=== PATIENT | female | born 1950 | race American Indian/Alaskan Native ===

== ENCOUNTER 2017-06-01 18:30 | Emergency (ER) | payer MEDICARE ==
--- NOTE | 2017-06-01 18:57 | EDM.PDOC ---
ED HPI GENERAL MEDICAL PROBLEM - General Chief Complaint: Neuro Symptoms/Deficits Stated Complaint: DEHYDRATED/POSSIBLE STROKE Time Seen by Provider: 06/01/17 18:55 Source of Information: Reports: Patient, EMS, Family History Limitations: Reports: No Limitations - History of Present Illness INITIAL COMMENTS - FREE TEXT/NARRATIVE: HISTORY AND PHYSICAL: [] 67-year-old female who presents with weakness History of Present Illness: []Patient was seen at by her physician and Niraj at [place] yesterday a fistula was drained from her left upper arm. Fistulas placed because she is on dialysis. Weakness to this arm has been present for several years. Patient was noted to have a drop in her blood sugar on the way home from [place] yesterday and they stopped at the hospital in [place] for evaluation and treatment. When patient was home she was walking in the house and was confused was out on the balcony then fell backwards striking the back of her head on the TV stand. Patient was acting "funny" and unable able to carry on a conversation is normal. Slowly she is improving but having difficulty occasionally. Review of Systems: As per history of present illness and below otherwise all systems reviewed and negative. Past medical history: As per history of present illness and as reviewed below otherwise noncontributory. Surgical history: As per history of present illness and as reviewed below otherwise noncontributory. Social history: No reported history of drug or alcohol abuse. Family history: As per history of present illness and as reviewed below otherwise noncontributory. Physical exam: Alert female answering questions when given a chance HEENT: Atraumatic, normocehpalic, pupils reactive, negative for conjunctival pallor or scleral icterus, mucous membranes moist, throat clear, neck supple, nontender, trachea midline. Lungs: Clear to auscultation, breath sounds equal bilaterally, chest non tender. Heart: S1S2, regular, negative for clicks, rubs, or JVD. Abdomen: Soft, nondistended, nontender. Negative for masses or hepatossplenmegaly. Negative for costovertebral tenderness. Pelvis: Stable nontender. Genitourinary: Deferred. Rectal: Deferred Extremities: Atraumatic, negative for cords or calf pain. Neurovascular unremarkable. Neuro: Awake, alert, oriented. Cranial nerves II through XII unremarkable. Cerebellum unremarkable. Motor and sensory unremarkable throughout. Exam nonfocal. Diagnostics: [Head CT, CBC CMP] Therapeutics: [] Impression: [Mild concussion] Plan: [Discharged home Follow up with PCP Continue with current meds as she been taking them] Definitive disposition and diagnosis as appropriate pending reevaluation and review of above. Onset: Sudden Duration: Day(s): (1) Location: Reports: Head, Generalized Severity: Moderate Improves with: Reports: None Worsens with: Reports: None - Related Data Allergies Allergy/AdvReac Type Severity Reaction Status Date / Time iodine Allergy Airway Verified 06/01/17 18:47 Tightness Penicillins Allergy Rash Verified 06/01/17 18:47 shellfish derived Allergy Airway Verified 06/01/17 18:47 Tightness Home Meds: Home Meds Metoprolol Succinate 25 mg PO DAILY #30 tab.er.24h 06/15/16 [Rx] Past Medical History Cardiovascular History: Reports: [place] Genitourinary History: Reports: Chronic Renal Insuffiency, Dialysis, Other (See Below) Other Genitourinary History: On HD - Past Surgical History Cardiovascular Surgical History: Reports: Coronary Artery Bypass Musculoskeletal Surgical History: Reports: Other (See Below) Social & Family History - Tobacco Use Smoking Status *Q: Former Smoker Used Tobacco, but Quit: Yes Month Tobacco Last Used: 2002 Second Hand Smoke Exposure: No - Alcohol Use Days Per Week of Alcohol Use: 0 - Recreational Drug Use Recreational Drug Use: No ED ROS GENERAL - Review of Systems Review Of Systems: ROS reveals no pertinent complaints other than HPI. ED EXAM, NEURO - Physical Exam Exam: See Below (See dictation) Course - Vital Signs Last Recorded V/S: Last Vital Signs Temp 36.7 C 06/01/17 18:49 Pulse 82 06/01/17 18:49 Resp 20 06/01/17 18:49 BP 174/75 H 06/01/17 18:49 Pulse Ox 95 06/01/17 18:49 - Orders/Labs/Meds Orders: Active Orders 24 hr Category Date Time Status Head wo Cont [CT] Stat Exams 06/01/17 18:55 Taken Labs: Laboratory Tests 06/01/17 06/01/17 Range/Units 19:29 19:29 WBC 9.98 (4.0-11.0) K/uL RBC 3.28 L (4.30-5.90) M/uL Hgb 10.5 L (12.0-16.0) g/dL Hct 32.4 L (36.0-46.0) % MCV 98.8 H (80.0-98.0) fL MCH 32.0 (27.0-32.0) pg MCHC 32.4 (31.0-37.0) g/dL RDW Std Deviation 49.6 (28.0-62.0) fl RDW Coeff of Edyta 14 (11.0-15.0) % Plt Count 260 (150-400) K/uL MPV 10.80 (7.40-12.00) fL Neut % (Auto) 77.8 (48.0-80.0) % Lymph % (Auto) 10.1 L (16.0-40.0) % [place] % (Auto) 8.9 (0.0-15.0) % Eos % (Auto) 3.0 (0.0-7.0) % Baso % (Auto) 0.2 (0.0-1.5) % Neut # (Auto) 7.8 H (1.4-5.7) K/uL Lymph # (Auto) 1.0 (0.6-2.4) K/uL [place] # (Auto) 0.9 H (0.0-0.8) K/uL Eos # (Auto) 0.3 (0.0-0.7) K/uL Baso # (Auto) 0.0 (0.0-0.1) K/uL Nucleated RBC % 0.0 /100WBC Nucleated RBCs # 0 K/uL Sodium 139 (136-146) mmol/L Potassium 4.0 (3.5-5.1) mmol/L Chloride 99 (98-110) mmol/L Carbon Dioxide 28 (21-31) mmol/L BUN 23 (6.0-23.0) mg/dL Creatinine 5.5 H (0.6-1.5) mg/dL Est Cr Clr Drug Dosing TNP Estimated GFR (MDRD) 7.7 ml/min Glucose 163 H (60-110) mg/dL Calcium 8.2 L (8.8-10.8) mg/dL Total Bilirubin 0.6 (0.1-1.5) mg/dL AST 11 (5-40) IU/L ALT 8 (8-54) IU/L Alkaline Phosphatase 142 (40-150) Total Protein 6.6 (6.0-8.0) g/dL Albumin 3.8 (3.4-4.8) g/dL Globulin 2.8 (2.0-3.5) g/dL Albumin/Globulin Ratio 1.4 (1.3-2.8) Departure - Departure Time of Disposition: 20:31 Disposition: Home, Self-Care 01 Condition: Good Clinical Impression: Concussion Qualifiers: Encounter type: initial encounter Loss of consciousness presence/duration: without LOC Qualified Code(s): S06.0X0A - Concussion without loss of consciousness, initial encounter Mild closed head injury Qualifiers: Encounter type: initial encounter Qualified Code(s): S09.90XA - Unspecified injury of head, initial encounter - Discharge Information Referrals: PCP,None [Primary Care Provider] - Forms: ED Department Discharge Additional Instructions: The following information is given to patients seen in the emergency department who are being discharged to home. This information is to outline your options for follow-up care. We provide all patients seen in our emergency department with a follow-up referral. The need for follow-up, as well as the timing and circumstances, are variable depending upon the specifics of your emergency department visit. If you don't have a primary care physician on staff, we will provide you with a referral. We always advise you to contact your personal physician following an emergency department visit to inform them of the circumstance of the visit and for follow-up with them and/or the need for any referrals to a consulting specialist. The emergency department will also refer you to a specialist when appropriate. This referral assures that you have the opportunity for followup care with a specialist. All of these measure are taken in an effort to provide you with optimal care, which includes your followup. Under all circumstances we always encourage you to contact your private physician who remains a resource for coordinating your care. When calling for followup care, please make the office aware that this follow-up is from your recent emergency room visit. If for any reason you are refused follow-up, please contact the [facility] emergency department at and asked to speak to the emergency department charge nurse. You've been found to have a mild head injury/concussion after fall yesterday Follow-up with your primary care provider in 2 days Tenuous current medications ias you have been taking them - My Orders Last 24 Hours: My Active Orders 06/01/17 18:55 Head wo Cont [CT] Stat - Assessment/Plan Last 24 Hours: My Active Orders 06/01/17 18:55 Head wo Cont [CT] Stat
[2017-06-01 20:02] LABS: CHLORIDE,CL 99 mmol/L (98-110); SODIUM,NA 139 mmol/L (136-146)
[2017-06-01 20:55] VITALS: BP 156/73
--- NOTE | 2017-06-06 13:47 | CT ---
EXAM DATE: 06/01/17 PATIENT'S AGE: 67 Patient: YAZMIN TRACEY Facility: [facility] Site . Site : 1950 Study: CT-Head [id number]/1/2018 7:49:19 PM Ordering Physician: Doctor Escalante Final Report: INDICATION: AMS, THAPA FINDINGS: No intracranial hemorrhage, mass effect, or evidence for acute infarction. Patchy low attenuation changes in the white matter of both cerebral hemispheres consistent with chronic small vessel ischemic changes. Age- appropriate cerebral and cerebellar volume loss. Intracranial vascular calcifications. IMPRESSION: 1. No acute findings. 2. Chronic age-related changes. Please note that all CT scans performed at this facility use dose modulation, iterative reconstruction, and/or weight based dosing when appropriate to reduce radiation dose to as low as reasonably achievable. Dictated by: Christopher Dudley MD @ 06/01/2017 19:54:02 Signed by: Christopher Dudley MD @06/01/2017 7:54:02 PM (Electronic Signature) Report Signed by Proxy. [facility]
== END 2017-06-01 20:55 | disposition home or self-care (01) ==
LOC: MW.ED 18:30
DX: S06.0X0A Concussion without loss of consciousness, initial encounter (principal); N18.9 Chronic kidney disease, unspecified; Z99.2 Dependence on renal dialysis; Z87.891 Personal history of nicotine dependence; W01.198A Fall on same level from slipping, tripping and stumbling with subsequent striking against other object, initial encounter; Y92.009 Unspecified place in unspecified non-institutional (private) residence as the place of occurrence of the external cause
CPT/HCPCS: 36415; 70450; 70450-26; 80053; 85025; 99284; 99284-25

== ENCOUNTER 2017-06-17 13:37 | Emergency (ER) | payer MEDICARE ==
[2017-06-17] MEDS ORDERED: cefTRIAXone 1,000 MG in Lidocaine 1% 4 ML IM ONE (15:03)
--- NOTE | 2017-06-17 16:18 | EDM.PDOC ---
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 Review of Systems: As per history of present illness and below otherwise all systems reviewed and negative. Past medical history: As per history of present illness and as reviewed below otherwise noncontributory. Surgical history: As per history of present illness and as reviewed below otherwise noncontributory. Social history: No reported history of drug or alcohol abuse. Family history: As per history of present illness and as reviewed below otherwise noncontributory. Physical exam: Patient was sent to the emergency room today due to increased pustular material. She was accompanied initially by her sister. Patient has wearing sunglasses during her time in the emergency department, is answering questions appropriately in full sentences without any shortness of breath. HEENT: Atraumatic, normocehpalic, pupils reactive, negative for conjunctival pallor or scleral icterus, mucous membranes moist, throat clear, neck supple, nontender, trachea midline. Lungs: Clear to auscultation, breath sounds equal bilaterally, chest non tender. Heart: S1S2, regular, negative for clicks, rubs, or JVD. Abdomen: Soft, nondistended, nontender. Negative for masses or hepatossplenmegaly. Negative for costovertebral tenderness. Pelvis: Stable nontender. Genitourinary: Deferred. Rectal: Deferred Extremities: Atraumatic, negative for cords or calf pain. Fistula to the left arm is erythematous raised there is fluctuant material in her elbow. Purulent material is present. A light amount of pressure to this area and purulent material mixed with blood is present about 1 tablespoon is easily expressed. Neurovascular unremarkable. Neuro: Awake, alert, oriented. Cranial nerves II through XII unremarkable. Cerebellum unremarkable. Motor and sensory unremarkable throughout. Exam nonfocal. Discussion was held with Dr. Nowak ER doctor, and Dr. Jerome radiation control specialist at [facility] who is on-call for her surgeon Dr. Pimentel. His recommendation has been to give her a dose of vancomycin IV, Rocephin IM and reevaluate this wound tomorrow. Patient is due to have dialysis again on 06/19/17. I had a discussion with the patient regarding this infection to her arm/the treatment that may be required/and follow-up with her surgeon. Have reviewed that the discussion several times with this patient. Dr. Nowak has had discussion with this patient regarding the infection to her arm. She is agreeable for transfer to her surgeon in [place] for definitive treatment. Dr. Nowak kindly spoke with the hospitalist at [facility] in [place] who accepted care of this patient along with Dr. Jerome. All IMTAL[employer] forms, transfer papers were completed Patient has been encouraged to all her sister to let her know that she will be transferring. Diagnostics: [CBC CMP lactic acid] Therapeutics: [IV vancomycin Rocephin IM] Impression: [Skin Infection at the fistula site] Abscess to left inner arm fistula Plan: [Transfer to [facility]] Definitive disposition and diagnosis as appropriate pending reevaluation and review of above. Onset: Gradual Duration: Day(s): Location: Reports: Upper Extremity, Left Severity: Moderate Improves with: Reports: None Worsens with: Reports: None - Related Data Allergies Allergy/AdvReac Type Severity Reaction Status Date / Time iodine Allergy Airway Verified 06/01/17 18:47 Tightness Penicillins Allergy Rash Verified 06/01/17 18:47 shellfish derived Allergy Airway Verified 06/01/17 18:47 Tightness Home Meds: Home Meds B Complex & C No.20/Folic Acid [Olvin Caps Softgel] 1 mg PO DAILY 06/17/17 [ History] Gabapentin [Neurontin] 100 mg PO QID 06/17/17 [History] Insulin Detemir [Levemir] 15 unit SQ BID 06/17/17 [History] Levothyroxine 175 mcg PO DAILY 06/17/17 [History] Sevelamer Carbonate [Renvela] 800 mg PO TID 06/17/17 [History] Past Medical History Cardiovascular History: Reports: Hypertension, [place] Genitourinary History: Reports: Chronic Renal Insuffiency, Dialysis, Other (See Below) Other Genitourinary History: On HD Endocrine/Metabolic History: Reports: Other (See Below) Other Endocrine/Metabolic History: hyperlipedmia - Past Surgical History Cardiovascular Surgical History: Reports: Coronary Artery Bypass GI Surgical History: Reports: Appendectomy, Cholecystectomy Social & Family History - Family History Family Medical History: Noncontributory - Tobacco Use Smoking Status *Q: Never Smoker Used Tobacco, but Quit: Yes Month Tobacco Last Used: 2002 Second Hand Smoke Exposure: No - Alcohol Use Days Per Week of Alcohol Use: 0 - Recreational Drug Use Recreational Drug Use: No ED ROS GENERAL - Review of Systems Review Of Systems: ROS reveals no pertinent complaints other than HPI. ED EXAM, SKIN/RASH Exam: See Below (See dictation) Course - Vital Signs Last Recorded V/S: Last Vital Signs Temp 36.8 C 06/17/17 16:29 Pulse 64 06/17/17 16:29 Resp 16 06/17/17 16:29 BP 161/57 H 06/17/17 16:29 Pulse Ox 95 06/17/17 16:29 - Orders/Labs/Meds Orders: Active Orders 24 hr Category Date Time Status CULTURE BLOOD [BC] Stat Lab 06/17/17 15:28 Received CULTURE BLOOD [BC] Stat Lab 06/17/17 15:30 Received CULTURE WOUND [RM] Stat Lab 06/17/17 11:20 Received Blood Culture x2 Reflex Set [OM.PC] Stat Oth 06/17/17 15:03 Ordered Labs: Laboratory Tests 06/17/17 06/17/17 06/17/17 Range/Units 14:42 14:42 14:42 WBC 10.54 (4.0-11.0) K/uL RBC 3.52 L (4.30-5.90) M/uL Hgb 11.4 L (12.0-16.0) g/dL Hct 34.0 L (36.0-46.0) % MCV 96.6 (80.0-98.0) fL MCH 32.4 H (27.0-32.0) pg MCHC 33.5 (31.0-37.0) g/dL RDW Std Deviation 47.3 (28.0-62.0) fl RDW Coeff of Edyta 14 (11.0-15.0) % Plt Count 257 (150-400) K/uL MPV 11.00 (7.40-12.00) fL Neut % (Auto) 76.6 (48.0-80.0) % Lymph % (Auto) 14.0 L (16.0-40.0) % [place] % (Auto) 6.2 (0.0-15.0) % Eos % (Auto) 2.8 (0.0-7.0) % Baso % (Auto) 0.4 (0.0-1.5) % Neut # (Auto) 8.1 H (1.4-5.7) K/uL Lymph # (Auto) 1.5 (0.6-2.4) K/uL [place] # (Auto) 0.7 (0.0-0.8) K/uL Eos # (Auto) 0.3 (0.0-0.7) K/uL Baso # (Auto) 0.0 (0.0-0.1) K/uL Nucleated RBC % 0.0 /100WBC Nucleated RBCs # 0 K/uL Lactate 1.9 (0.20-2.00) mmol/L Sodium 133 L (136-146) mmol/L Potassium 3.9 (3.5-5.1) mmol/L Chloride 94 L (98-110) mmol/L Carbon Dioxide 27 (21-31) mmol/L BUN 20 (6.0-23.0) mg/dL Creatinine 4.5 H (0.6-1.5) mg/dL Est Cr Clr Drug Dosing 9.47 mL/min Estimated GFR (MDRD) 9.7 ml/min Glucose 218 H (60-110) mg/dL Calcium 8.6 L (8.8-10.8) mg/dL Total Bilirubin 0.7 (0.1-1.5) mg/dL AST 13 (5-40) IU/L ALT 10 (8-54) IU/L Alkaline Phosphatase 153 H (40-150) Total Protein 6.6 (6.0-8.0) g/dL Albumin 3.6 (3.4-4.8) g/dL Globulin 3.0 (2.0-3.5) g/dL Albumin/Globulin Ratio 1.2 L (1.3-2.8) Meds: Medications Discontinued Medications Generic Name Dose Route Start Last Admin Trade Name Nidia PRN Reason Stop Dose Admin Ceftriaxone Sodium 1,000 mg/ 4 mls @ 4 mls/sec 06/17/17 15:03 06/17/17 15:34 Lidocaine HCl IM 06/17/17 15:04 4 mls/sec ONETIME ONE Administration Vancomycin HCl 1 gm/ Sodium 250 mls @ 250 mls/hr 06/17/17 15:58 06/17/17 16: 18 Chloride IV 06/17/17 16:57 250 mls/hr ONETIME ONE Administration Departure - Departure Time of Disposition: 17:13 Disposition: DC/Tfer to Acute Hospital 02 Condition: Good Clinical Impression: Abscess - Discharge Information Instructions: Skin Abscess Referrals: PCP,None [Primary Care Provider] - Forms: ED Department Discharge - My Orders Last 24 Hours: My Active Orders 06/17/17 11:20 CULTURE WOUND [RM] Stat 06/17/17 15:03 Blood Culture x2 Reflex Set [OM.PC] Stat 06/17/17 15:28 CULTURE BLOOD [BC] Stat 06/17/17 15:30 CULTURE BLOOD [BC] Stat - Assessment/Plan Last 24 Hours: My Active Orders 06/17/17 11:20 CULTURE WOUND [RM] Stat 06/17/17 15:03 Blood Culture x2 Reflex Set [OM.PC] Stat 06/17/17 15:28 CULTURE BLOOD [BC] Stat 06/17/17 15:30 CULTURE BLOOD [BC] Stat
[2017-06-17 17:55] VITALS: BP 160/65
== END 2017-06-17 18:03 ==
LOC: MW.ED 13:37
DX: T81.4XXA Infection following a procedure, initial encounter (principal); L02.414 Cutaneous abscess of left upper limb; I12.9 Hypertensive chronic kidney disease with stage 1 through stage 4 chronic kidney disease, or unspecified chronic kidney disease; E11.22 Type 2 diabetes mellitus with diabetic chronic kidney disease; N18.9 Chronic kidney disease, unspecified; Z99.2 Dependence on renal dialysis; E78.5 Hyperlipidemia, unspecified; Z79.4 Long term (current) use of insulin; Z79.899 Other long term (current) drug therapy; Z88.0 Allergy status to penicillin; Z88.8 Allergy status to other drugs, medicaments and biological substances; Z91.013 Allergy to seafood; Z87.891 Personal history of nicotine dependence; Z98.890 Other specified postprocedural states
CPT/HCPCS: 36415; 80053; 83605; 85025; 87040; 87070; 96365; 96372; 99284; J0696; J3370; J7050; 87077; 87186; 99285

== ENCOUNTER 2017-09-27 06:59 | Emergency (ER) | payer MEDICARE, MEDICAID ==
[2017-09-27] MEDS ORDERED: Sodium Chloride 0.9% 2.5 ML Syringe FLUSH PRN (07:16)
--- NOTE | 2017-09-27 07:22 | EDM.PDOC ---
ED HPI GENERAL MEDICAL PROBLEM - General Chief Complaint: Trauma Stated Complaint: AMBULANCE Time Seen by Provider: 09/27/17 07:09 - History of Present Illness INITIAL COMMENTS - FREE TEXT/NARRATIVE: HISTORY AND PHYSICAL: History of present illness: The patient is a 67-year-old female who has end-stage renal disease and is on hemodialysis and also has hypertension , history of CABG, diabetes hypothyroidism who presents via EMS after a simple follow one-step because she missed the step and fell onto her left arm. Patient was with her nephew who was walking with her and witnessed the fall and says that she was coming down the last step and missed it and fell onto the left side. The patient did not pass out or black out and has no head neck or back pain but complains only of left humerus pain. The patient says she was on her way to dialysis this morning when this occurred. She usually uses a walker and was walking the steps without assistance. Patient's fistula for dialysis is also on that left side. Patient denies any preceding symptomatology and has no systemic complaints and also has no shortness of breath chest pain rib pain pelvis pain or other extremity complaints. She localizes the pain in the humerus area and says that the elbow forearm wrist and hand do not hurt nor does the proximal shoulder. Review of systems: As per history of present illness and below otherwise all systems reviewed and negative. Past medical history: As per history of present illness and as reviewed below otherwise noncontributory. Surgical history: As per history of present illness and as reviewed below otherwise noncontributory. Social history: No reported history of drug or alcohol abuse. Family history: As per history of present illness and as reviewed below otherwise noncontributory. Physical exam: General: Well-developed well-nourished overweight female who is nontoxic and vital signs have been reviewed by me HEENT: Atraumatic, normocephalic, pupils reactive, negative for conjunctival pallor or scleral icterus, mucous membranes moist, throat clear, neck supple, nontender, trachea midline. There are no midline step-offs in his defects of the cervical spine and no visible evidence of any facial trauma such as swelling defects or deformities Lungs: Clear to auscultation, breath sounds are diminished in the bases but there is no worker breathing wheezing or stridor, breath sounds equal bilaterally, chest nontender. Heart: S1S2, regular rate and rhythm no overt murmur Abdomen: Soft, nondistended, nontender. Negative for masses or hepatosplenomegaly. NABS Pelvis: Stable nontender. Lateral hip tenderness on palpation Genitourinary: Deferred. Rectal: Deferred. Extremities: Atraumatic with full range of motion of all extremities with the exception of the left humerus area. There is soft tissue swelling and tenderness at the mid humerus but there is no proximal clavicle tenderness or distal elbow forearm wrist or hand tenderness or deformities. The dialysis fistula is present in the soft tissue in this same region of the left biceps area and there is a thrill. The legs are, negative for cords or calf pain. There are arthritic changes noted in the left knee without tenderness swelling or deformities. Neurovascular unremarkable. Neuro: Awake, alert, oriented. Motor and sensory unremarkable throughout. Exam nonfocal. Diagnostics: EKG CBC CMP chest x-ray one view pelvis x-ray one view and humerus x-rays Therapeutics: IV access morphine These note the patient received 100 g of fentanyl per EMS prior to arrival Please note that initially a trauma alert was called because it was believed by nursing that the patient was on anticoagulation therapy and sustained a fall. Upon further investigation she only takes an aspirin so the trauma alert was canceled by me. 0728: . Case was discussed with Dr. Cifuentes our orthopedic surgeon who will come and evaluate the patient for immobilization. He is aware that we can not do inpatient dialysis and that the patient will need to be transferred for that dialysis treatment as well as surgical repair of this fracture. I will request him to do a formal consult. 0735: Case was discussed with the orthopedic surgeon on-call at [facility] in [place], Dr. Marie, and he is concerned about the transfer primarily because of dialysis reasons. He is currently reviewing the x-rays and said that he will recontact me. 0813: Dr. Cifuentes has seen the patient here in the emergency department and has placed the patient in a sling as he feels this is the best choice for immobilization. He is aware of events with [facility] in [place]. I was told by one call to Dr. Marie would not except the patient and that I would need to speak with the hospitalist who I am currently awaiting a callback from. Patient is aware that she needs to be transferred but I will rediscuss this with her once the plans are set. Dr. Cifuentes agrees that she should be transferred because he won't not be here past tomorrow to manage her care and she will need pain control and potentially surgery as determined by orthopedics. Please see his consult note for further information 0832: Case was discussed with the hospitalist at [facility] in [place], Dr. Dunne, who accepts the patient for transfer. I discussed with the patient and the sister at bedside that she will be transferred and she may or may not have surgery but they will address her dialysis needs as well as her pain management. We are arranging for transportation Impression: Simple fall with left humerus midshaft displaced and overriding fracture history of end-stage renal disease needing dialysis Definitive disposition and diagnosis as appropriate pending reevaluation and review of above. left arm Pain Score (Numeric/FACES): 8 - Related Data Allergies Allergy/AdvReac Type Severity Reaction Status Date / Time iodine Allergy Airway Verified 09/27/17 07:19 Tightness Penicillins Allergy Rash Verified 09/27/17 07:19 shellfish derived Allergy Airway Verified 09/27/17 07:19 Tightness Home Meds: Home Meds Aspirin 81 mg PO DAILY 09/27/17 [History] Carvedilol 12.5 mg PO BID 09/27/17 [History] Cholecalciferol (Vitamin D3) [Vitamin D] 1 tab PO DAILY 09/27/17 [History] Gabapentin [Neurontin] 100 mg PO TID 09/27/17 [History] Ranitidine HCl [Ranitidine] 150 mg PO BEDTIME 09/27/17 [History] Sertraline [Zoloft] 50 mg PO BEDTIME 09/27/17 [History] Sevelamer Carbonate 2 tab PO TID 09/27/17 [History] Simvastatin [Zocor] 20 mg PO DAILY 09/27/17 [History] amLODIPine Besylate [Amlodipine Besylate] 10 mg PO DAILY 09/27/17 [History] Past Medical History Cardiovascular History: Reports: Hypertension, [place] Genitourinary History: Reports: Chronic Renal Insuffiency, Dialysis, Other (See Below) Other Genitourinary History: On HD Endocrine/Metabolic History: Reports: Other (See Below) Other Endocrine/Metabolic History: hyperlipedmia - Past Surgical History Cardiovascular Surgical History: Reports: Coronary Artery Bypass GI Surgical History: Reports: Appendectomy, Cholecystectomy Social & Family History - Family History Family Medical History: Noncontributory Review of Systems - Review of Systems Review Of Systems: ROS reveals no pertinent complaints other than HPI. ED EXAM, GENERAL - Physical Exam Exam: See Below (See dictation) Course - Vital Signs Last Recorded V/S: Last Vital Signs Temp 36.1 C 09/27/17 07:05 Pulse 51 L 09/27/17 07:45 Resp 20 09/27/17 07:45 BP 129/69 09/27/17 07:45 Pulse Ox 93 L 09/27/17 07:45 - Orders/Labs/Meds Orders: Active Orders 24 hr Category Date Time Status EKG 12 Lead [EKG Documentation Completion] [RC] STAT Care 09/27/17 08:33 Active Notify Provider Consults [RC] ASDIRECTED Care 09/27/17 07:39 Active Consult to Physician [CONS] Stat Cons 09/27/17 07:39 Active Chest 1V Frontal [CR] Stat Exams 09/27/17 07:17 Ordered Humerus Lt [CR] Stat Exams 09/27/17 07:16 Taken Pelvis 1V or 2V [CR] Stat Exams 09/27/17 07:17 Taken Sodium Chloride 0.9% [Saline Flush] Med 09/27/17 07:16 Active 10 ml FLUSH ASDIRECTED PRN Sodium Chloride 0.9% [Saline Flush] Med 09/27/17 07:16 Active 2.5 ml FLUSH ASDIRECTED PRN Saline Lock Insert [OM.PC] Stat Oth 09/27/17 07:16 Ordered Medication Orders Sodium Chloride (Saline Flush) 10 ml FLUSH ASDIRECTED PRN PRN Reason: Keep Vein Open Last Admin: 09/27/17 07:28 Dose: 10 ml Sodium Chloride (Saline Flush) 2.5 ml FLUSH ASDIRECTED PRN PRN Reason: Keep Vein Open Labs: Laboratory Tests 09/27/17 09/27/17 Range/Units 07:00 07:00 WBC 8.38 (4.0-11.0) K/uL RBC 3.10 L (4.30-5.90) M/uL Hgb 10.1 L (12.0-16.0) g/dL Hct 29.3 L (36.0-46.0) % MCV 94.5 (80.0-98.0) fL MCH 32.6 H (27.0-32.0) pg MCHC 34.5 (31.0-37.0) g/dL RDW Std Deviation 45.5 (28.0-62.0) fl RDW Coeff of Edyta 13 (11.0-15.0) % Plt Count 292 (150-400) K/uL MPV 10.20 (7.40-12.00) fL Neut % (Auto) 68.6 (48.0-80.0) % Lymph % (Auto) 17.4 (16.0-40.0) % [place] % (Auto) 9.1 (0.0-15.0) % Eos % (Auto) 4.4 (0.0-7.0) % Baso % (Auto) 0.5 (0.0-1.5) % Neut # (Auto) 5.8 H (1.4-5.7) K/uL Lymph # (Auto) 1.5 (0.6-2.4) K/uL [place] # (Auto) 0.8 (0.0-0.8) K/uL Eos # (Auto) 0.4 (0.0-0.7) K/uL Baso # (Auto) 0.0 (0.0-0.1) K/uL Nucleated RBC % 0.0 /100WBC Nucleated RBCs # 0 K/uL Sodium 124 L (136-145) mmol/L Potassium 5.8 H (3.5-5.1) mmol/L Chloride 89 L (98-107) mmol/L Carbon Dioxide 28.3 (21.0-32.0) mmol/L BUN 41 H (7.0-18.0) mg/dL Creatinine 5.7 H (0.6-1.0) mg/dL Est Cr Clr Drug Dosing TNP Estimated GFR (MDRD) 7.4 ml/min Glucose 126 H (74-106) mg/dL Calcium 8.4 L (8.5-10.1) mg/dL Total Bilirubin 0.5 (0.2-1.0) mg/dL AST 17 (15-37) IU/L ALT 13 L (14-63) IU/L Alkaline Phosphatase 136 H (46-116) U/L Total Protein 6.5 (6.4-8.2) g/dL Albumin 3.4 (3.4-5.0) g/dL Globulin 3.1 (2.0-3.5) g/dL Albumin/Globulin Ratio 1.1 L (1.3-2.8) Meds: Medications Generic Name Dose Route Start Last Admin Trade Name Nidia PRN Reason Stop Dose Admin Sodium Chloride 10 ml 09/27/17 07:16 09/27/17 07:28 Saline Flush FLUSH 10 ml ASDIRECTED PRN Administration Keep Vein Open Sodium Chloride 2.5 ml 09/27/17 07:16 Saline Flush FLUSH ASDIRECTED PRN Keep Vein Open Discontinued Medications Generic Name Dose Route Start Last Admin Trade Name Nidia PRN Reason Stop Dose Admin Morphine Sulfate 4 mg 09/27/17 07:18 09/27/17 07:27 Morphine IVPUSH 09/27/17 07:19 4 mg ONETIME ONE Administration Departure - Departure Time of Disposition: 08:44 Disposition: DC/Tfer to Acute Hospital 02 Condition: Good Clinical Impression: Fracture, humerus closed, shaft, ESRD needing dialysis - Discharge Information Referrals: PCP,None [Primary Care Provider] - Forms: ED Department Discharge - My Orders Last 24 Hours: My Active Orders 09/27/17 07:16 Humerus Lt [CR] Stat Sodium Chloride 0.9% [Saline Flush] 10 ml FLUSH ASDIRECTED PRN Sodium Chloride 0.9% [Saline Flush] 2.5 ml FLUSH ASDIRECTED PRN Saline Lock Insert [OM.PC] Stat 09/27/17 07:17 Chest 1V Frontal [CR] Stat Pelvis 1V or 2V [CR] Stat 09/27/17 07:39 Notify Provider Consults [RC] ASDIRECTED Consult to Physician [CONS] Stat 09/27/17 08:33 EKG 12 Lead [EKG Documentation Completion] [RC] STAT - Assessment/Plan Last 24 Hours: My Active Orders 09/27/17 07:16 Humerus Lt [CR] Stat Sodium Chloride 0.9% [Saline Flush] 10 ml FLUSH ASDIRECTED PRN Sodium Chloride 0.9% [Saline Flush] 2.5 ml FLUSH ASDIRECTED PRN Saline Lock Insert [OM.PC] Stat 09/27/17 07:17 Chest 1V Frontal [CR] Stat Pelvis 1V or 2V [CR] Stat 09/27/17 07:39 Notify Provider Consults [RC] ASDIRECTED Consult to Physician [CONS] Stat 09/27/17 08:33 EKG 12 Lead [EKG Documentation Completion] [RC] STAT
[2017-09-27] MEDS: Morphine 2 MG/ML Syringe IVPUSH ONE (07:27)
[2017-09-27] MEDS: Sodium Chloride 0.9% 10 ML Syringe FLUSH PRN (07:28)
[2017-09-27 07:40] LABS: CHLORIDE,CL 89 mmol/L (98-107); SODIUM,NA 124 mmol/L (136-145)
[2017-09-27 09:39] VITALS: BP 134/52
--- NOTE | 2017-09-27 10:05 | CONS ---
DATE OF CONSULTATION: DATE OF : 1950 PRIMARY CARE PHYSICIAN: Reinier PCP HISTORY OF PRESENT ILLNESS: The patient is a 67-year-old female, who sustained a fall resulting in injury to her left upper extremity. She was evaluated in the emergency department and I was consulted for assistance with management of this injury. She denies additional injuries associated with the event. She has a history of a cervical spine procedure with some residual neurologic deficits involving her left upper extremity. PAST MEDICAL HISTORY: Multiple issues including diabetic with a current diabetic foot ulcer, chronic renal failure on dialysis, vision issues, myocardial infarction/coronary artery disease. PHYSICAL EXAMINATION: GENERAL: Reveals a female who is alert, in no apparent distress. She is mildly uncomfortable with respect to her left upper extremity. She denies pain more distally in the elbow, forearm, or wrist. She denies pain involving her other extremities. No bruising or indication of trauma in the other extremities. She does have a bandage over a diabetic foot ulcer on her toe. MUSCULOSKELETAL: Examination of her left upper extremity does show intact sensation to light touch in the hand. She is not able to extend the thumb, although she says it is a chronic issue with respect to her cervical spine. She is able to extend the wrist. She can flex and extend the finger. She can abduct and abduct the fingers. She has a shunt evident involving the anterior antecubital fossa. There is deformity and some bruising in the humerus. No skin lacerations or openings. I am not able to palpate a clear radial pulse, but she does have obvious flow through the shunt. DIAGNOSTIC DATA: Results reviewed. Plain films were reviewed and show a displaced midshaft humerus fracture. ASSESSMENT: Displaced midshaft humerus fracture in a patient with multiple comorbidities as described above. PLAN: With respect to treatment of this fracture, it may be amenable to treatment with a fracture brace although, this could be difficult given her body habitus. Regardless of the treatment method chosen, she will require inpatient admission given her multiple comorbidities and need for pain control. We do not have dialysis capability at this facility, and the patient will therefore be transferred to a higher level of care. I did place the patient in a sling in the most comfortable position to hopefully facilitate her transfer to some extent. Surgical intervention may ultimately require for this humerus fracture given the nature of the fracture as well as the anatomy of her extremity. If so, this would certainly better performed at a facility with more robust intensive care/cardiology/dialysis capability. MADELINE / TANISHA /[id number]
--- NOTE | 2017-09-27 14:21 | CR ---
EXAM DATE: 09/27/17 PATIENT'S AGE: 67 Patient: YAZMIN LIMA Facility: [place], [place] Site . Site : 1950 Study: XRay Extremity Left [id number] humerus-09/27/2017 7:24:05 AM Ordering Physician: Gaurav Dover Final Report: INDICATION: Patient fell; pain left arm. TECHNIQUE: Two-view study left humerus. FINDINGS: Fracture mid humerus with lateral angulation and overlapping of the fracture fragments. Diffuse osteoporosis. Surgical clips identified at the left elbow. IMPRESSION: 1. Fracture left mid humerus with lateral angulation and overlying fractured fragments. 2. Diffuse osteoporosis. Dictated by Tamanna Valverde MD @ Sep 27 2017 7:27AM (Electronic Signature) Report Signed by Proxy. KEENAN
--- NOTE | 2017-09-28 10:38 | CR ---
EXAM DATE: 09/27/17 PATIENT'S AGE: 67 Patient: YAZMIN LIMA Facility: [facility] Site . Site : 1950 Study: XRay-Chest [id number]/30/2018 7:41:21 AM Ordering Physician: Gaurav Dover Final Report: INDICATION: Patient fell. TECHNIQUE: Portable AP chest. FINDINGS: Mild cardiomegaly. Clear lung douglass with no evidence of acute pneumonic infiltrates or CHF. Instrumentation lower cervical and upper thoracic spine. No pneumothorax or pleural effusion. IMPRESSION: 1. Mild cardiomegaly. 2. No acute pathology. Dictated by Tamanna Valverde MD @ Sep 27 2017 7:52AM Signed by: Tamanna Valverde MD @09/27/2017 7:53:19 AM (Electronic Signature) Report Signed by Proxy. KEENAN
--- NOTE | 2017-09-28 10:39 | CR ---
EXAM DATE: 09/27/17 PATIENT'S AGE: 67 Patient: YAZMIN LIMA Facility: [facility] Site . Site : 1950 Study: XRay-Pelvis [id number]/30/2018 7:41:41 AM Ordering Physician: Gaurav Dover Final Report: INDICATION: Patient fell; no particular Pain in the pelvis. TECHNIQUE: Portable AP radiograph pelvis. FINDINGS: The right hip is flexed. No obvious fracture or dislocation on either side. IMPRESSION: No gross pathology. Dictated by Tamanna Valverde MD @ Sep 27 2017 7:53AM Signed by: Tamanna Valverde MD @09/27/2017 7:57:57 AM (Electronic Signature) Report Signed by Proxy. [facility]
== END 2017-09-27 09:30 ==
LOC: MW.ED 06:59
DX: S42.302A Unspecified fracture of shaft of humerus, left arm, initial encounter for closed fracture (principal); I12.0 Hypertensive chronic kidney disease with stage 5 chronic kidney disease or end stage renal disease; N18.6 End stage renal disease; I25.2 Old myocardial infarction; E78.5 Hyperlipidemia, unspecified; I25.810 Atherosclerosis of coronary artery bypass graft(s) without angina pectoris; Z90.49 Acquired absence of other specified parts of digestive tract; E11.22 Type 2 diabetes mellitus with diabetic chronic kidney disease; E03.9 Hypothyroidism, unspecified; Z88.0 Allergy status to penicillin; Z91.013 Allergy to seafood; W10.9XXA Fall (on) (from) unspecified stairs and steps, initial encounter; Z79.82 Long term (current) use of aspirin; Z79.899 Other long term (current) drug therapy; Z99.2 Dependence on renal dialysis
CPT/HCPCS: 71045; 72170; 73060; 80053; 85025; 96374; 99285; J2270; 99284

== ENCOUNTER 2017-11-03 12:11 | Emergency (ER) | payer OTHER, MEDICARE, MEDICAID ==
--- NOTE | 2017-11-03 12:26 | EDM.PDOC ---
ED HPI GENERAL MEDICAL PROBLEM - General Chief Complaint: Head Injury Stated Complaint: FALL Time Seen by Provider: 11/03/17 12:11 Source of Information: Reports: Patient History Limitations: Reports: No Limitations - History of Present Illness INITIAL COMMENTS - FREE TEXT/NARRATIVE: HISTORY AND PHYSICAL: History of present illness: [Maritza is a 67-year-old female here with her daughter for head injury. Patient states she was in dialysis this morning when she was transferring from one chair to another. She states she got dizzy and fell backwards and hit her head. Patient reports she lost consciousness after hitting her head. Daughter states dialysis nurse told her she hit her head on the wall. Patient reports pain in her head and neck at this time. She denies any dizziness now, no vomiting, visual disturbances, SOB, palpitations, chest pain/pressure. ] Review of systems: As per history of present illness and below otherwise all systems reviewed and negative. Past medical history: As per history of present illness and as reviewed below otherwise noncontributory. Surgical history: As per history of present illness and as reviewed below otherwise noncontributory. Social history: No reported history of drug or alcohol abuse. Family history: As per history of present illness and as reviewed below otherwise noncontributory. Physical exam: General: patient lying comfortably in bed. C-collar in place. HEENT: normocephalic, pupils reactive, negative for conjunctival pallor or scleral icterus, mucous membranes moist, throat clear, neck supple, nontender, trachea midline. Lungs: Clear to auscultation, breath sounds equal bilaterally, chest nontender. Heart: S1S2, regular, negative for clicks, rubs, or JVD. Abdomen: Soft, nondistended, nontender. Negative for masses or hepatosplenomegaly. Negative for costovertebral tenderness. Pelvis: Stable nontender. Genitourinary: Deferred. Rectal: Deferred. Extremities: Atraumatic, negative for cords or calf pain. Neurovascular unremarkable. Neuro: Awake, alert, oriented. Cranial nerves II through XII unremarkable. Cerebellum unremarkable. Motor and sensory unremarkable throughout. Exam nonfocal. Glascow coma scale: 15 Notes: Diagnostics: [CT Head and cervical spine w/o contrast CBC, CMP, PT/INR, EKG] Therapeutics: [] Impression: [Radiologist called report right parietal subarrachnoid hemorrhage. Nondisplaced C2 fracture noted as well ] Plan: [Discussed with Dr. Ramey ER physician [facility]. Patient will be airlifted to [facility]. ] Definitive disposition and diagnosis as appropriate pending reevaluation and review of above. neck Pain Score (Numeric/FACES): 10 - Related Data Allergies Allergy/AdvReac Type Severity Reaction Status Date / Time iodine Allergy Airway Verified 11/03/17 12:16 Tightness Penicillins Allergy Rash Verified 11/03/17 12:16 shellfish derived Allergy Airway Verified 11/03/17 12:16 Tightness Home Meds: Home Meds Aspirin 81 mg PO DAILY 09/27/17 [History] Carvedilol 12.5 mg PO BID 09/27/17 [History] Cholecalciferol (Vitamin D3) [Vitamin D] 1 tab PO DAILY 09/27/17 [History] Gabapentin [Neurontin] 100 mg PO TID 09/27/17 [History] Ranitidine HCl [Ranitidine] 150 mg PO BEDTIME 09/27/17 [History] Sertraline [Zoloft] 50 mg PO BEDTIME 09/27/17 [History] Sevelamer Carbonate 2 tab PO TID 09/27/17 [History] Simvastatin [Zocor] 20 mg PO DAILY 09/27/17 [History] amLODIPine Besylate [Amlodipine Besylate] 10 mg PO DAILY 09/27/17 [History] Past Medical History HEENT History: Reports: None Cardiovascular History: Reports: Hypertension, [place] Respiratory History: Reports: None Gastrointestinal History: Reports: None Genitourinary History: Reports: Chronic Renal Insuffiency, Dialysis, Other (See Below) Other Genitourinary History: On HD [employer]IAN History: Reports: None Musculoskeletal History: Reports: Other (See Below) Other Musculoskeletal History: broken left shoulder Neurological History: Reports: None Psychiatric History: Reports: None Endocrine/Metabolic History: Reports: Other (See Below) Other Endocrine/Metabolic History: hyperlipedmia Hematologic History: Reports: None Immunologic History: Reports: None Oncologic (Cancer) History: Reports: None Dermatologic History: Reports: None - Infectious Disease History Infectious Disease History: Reports: Mumps - Past Surgical History Head Surgeries/Procedures: Reports: None HEENT Surgical History: Reports: None Cardiovascular Surgical History: Reports: Coronary Artery Bypass Respiratory Surgical History: Reports: None GI Surgical History: Reports: Appendectomy, Cholecystectomy Female Surgical History: Reports: None Neurological Surgical History: Reports: None Musculoskeletal Surgical History: Reports: Other (See Below) Oncologic Surgical History: Reports: None Dermatological Surgical History: Reports: None Social & Family History - Family History Family Medical History: Noncontributory - Tobacco Use Smoking Status *Q: Former Smoker Used Tobacco, but Quit: Yes Month/Year Tobacco Last Used: 2002 - Caffeine Use Caffeine Use: Reports: Coffee - Recreational Drug Use Recreational Drug Use: No ED ROS GENERAL - Review of Systems Review Of Systems: ROS reveals no pertinent complaints other than HPI. ED EXAM, HEAD INJURY - Physical Exam Exam: See Below (see dictation) Course - Vital Signs Last Recorded V/S: Last Vital Signs Temp 36.2 C 11/03/17 12:17 Pulse 52 L 11/03/17 12:17 Resp 18 11/03/17 12:17 BP 149/59 H 11/03/17 12:17 Pulse Ox 92 L 11/03/17 12:17 - Orders/Labs/Meds Orders: Active Orders 24 hr Category Date Time Status EKG Documentation Completion [RC] STAT Care 11/03/17 12:51 Active Cervical Spine wo Cont [CT] Stat Exams 11/03/17 12:15 Taken Head wo Cont [CT] Stat Exams 11/03/17 12:15 Taken CBC WITH AUTO DIFF [HEME] Stat Lab 11/03/17 12:51 Ordered COMPREHENSIVE METABOLIC PN,CMP [CHEM] Stat Lab 11/03/17 12:51 Ordered INR,PT,PROTHROMBIN TIME [COAG] Stat Lab 11/03/17 12:51 Ordered Sodium Chloride 0.9% [Saline Flush] Med 11/03/17 12:51 Active 10 ml FLUSH ASDIRECTED PRN Sodium Chloride 0.9% [Saline Flush] Med 11/03/17 12:51 Active 2.5 ml FLUSH ASDIRECTED PRN Saline Lock Insert [OM.PC] Stat Oth 11/03/17 12:51 Ordered Medication Orders Sodium Chloride (Saline Flush) 10 ml FLUSH ASDIRECTED PRN PRN Reason: Keep Vein Open Sodium Chloride (Saline Flush) 2.5 ml FLUSH ASDIRECTED PRN PRN Reason: Keep Vein Open Meds: Medications Generic Name Dose Route Start Last Admin Trade Name Freq PRN Reason Stop Dose Admin Sodium Chloride 10 ml 11/03/17 12:51 Saline Flush FLUSH ASDIRECTED PRN Keep Vein Open Sodium Chloride 2.5 ml 11/03/17 12:51 Saline Flush FLUSH ASDIRECTED PRN Keep Vein Open Departure - Departure Time of Disposition: 13:11 Disposition: DC/Tfer to [facility] Clinical Impression: Subarachnoid bleed - Discharge Information Referrals: PCP,None [Primary Care Provider] - Forms: ED Department Discharge - My Orders Last 24 Hours: My Active Orders 11/03/17 12:15 Cervical Spine wo Cont [CT] Stat Head wo Cont [CT] Stat 11/03/17 12:51 EKG Documentation Completion [RC] STAT CBC WITH AUTO DIFF [HEME] Stat COMPREHENSIVE METABOLIC PN,CMP [CHEM] Stat INR,PT,PROTHROMBIN TIME [COAG] Stat Sodium Chloride 0.9% [Saline Flush] 10 ml FLUSH ASDIRECTED PRN Sodium Chloride 0.9% [Saline Flush] 2.5 ml FLUSH ASDIRECTED PRN Saline Lock Insert [OM.PC] Stat - Assessment/Plan Last 24 Hours: My Active Orders 11/03/17 12:15 Cervical Spine wo Cont [CT] Stat Head wo Cont [CT] Stat 11/03/17 12:51 EKG Documentation Completion [RC] STAT CBC WITH AUTO DIFF [HEME] Stat COMPREHENSIVE METABOLIC PN,CMP [CHEM] Stat INR,PT,PROTHROMBIN TIME [COAG] Stat Sodium Chloride 0.9% [Saline Flush] 10 ml FLUSH ASDIRECTED PRN Sodium Chloride 0.9% [Saline Flush] 2.5 ml FLUSH ASDIRECTED PRN Saline Lock Insert [OM.PC] Stat
[2017-11-03] MEDS ORDERED: Sodium Chloride 0.9% 2.5 ML Syringe FLUSH PRN (12:51)
[2017-11-03] MEDS ORDERED: Sodium Chloride 0.9% 10 ML Syringe FLUSH PRN (12:51)
[2017-11-03 13:23] VITALS: BP 140/58
--- NOTE | 2017-11-03 18:49 | CT ---
EXAM DATE: 11/03/17 PATIENT'S AGE: 67 Patient: YAZMIN LIMA Facility: [place], [place] Site . Site : 1950 Study: CT Head [id number]/6/2018 12:49:25 PM Ordering Physician: Doctor Escalante Final Report: HISTORY: Fall, hit head. TECHNIQUE: Head was scanned in the axial plane at 3 mm intervals without IV contrast. Reconstructed bone windows were obtained as well as sagittal and coronal reconstructions. FINDINGS: The visualized paranasal sinuses and mastoid air cells are well aerated. The calvarium is intact. Calcifications seen within the carotid siphons. The ventricles and sulci are mildly enlarged. No intra-axial mass, edema or midline shift is identified. There is a small amount of subarachnoid hemorrhage seen at the right parietal parafalcine sulci on axial images 35-41. No subdural hematoma. Blackmon-white differentiation is preserved. IMPRESSION: 1. Atrophy. 2. Small amount of subarachnoid hemorrhage in the right parietal parafalcine sulci. Report called Joey Feliz 03 November 2017 @ 1301 hours. Dictated by Pili Holman MD @ 11/03/2017 12:58:18 PM Please note that all CT scans at this facility use dose modulation, iterative reconstruction, and/or weight-based dosing when appropriate to reduce radiation dose to as low as reasonably achievable. Dictated by: Pili Holman MD @ 11/03/2017 13:03:57 (Electronic Signature) Report Signed by Proxy. KEENAN
--- NOTE | 2017-11-03 18:50 | CT ---
EXAM DATE: 11/03/17 PATIENT'S AGE: 67 Patient: YAZMIN LIMA Facility: [place], [place] Site . Site : 1950 Study: CT Spine Cervical [id number]/6/2018 12:55:31 PM Ordering Physician: Doctor Escalante Final Report: INDICATION: Neck pain. Fall. Comparison none. TECHNIQUE: Axial CT of the cervical spine. Coronal and sagittal reformat images. FINDINGS: Straightening of the normal cervical lordosis. Normal vertebral body and facet alignment. There are acute fractures across the pars interarticularis of C2 on the right ( series 301, image 78; series 27, image 38) and extending across the left pedicle and lateral mass of C2 on the left (series 307, images 50-55; series 301 image 77). Findings consistent with a hangman`s fracture. There is no evidence of fracture of C1. No fracture of the odontoid process. No other acute fractures of the visualized cervical or upper thoracic spine. Postoperative changes of posterior fixation hardware from the level of C4 through the upper thoracic spine. There is mature bone grafting about the dorsal elements. Likely chronic compression fracture of the C7 vertebral body. Fixation screws at the levels of C3 and C5 on the left and C4 on the right do not appear seated within bone. There is a face station screw crossing the left pedicle of T1 which appears to extend across the medial cortex. No fractures of the visualized upper ribs. C1-2: No spinal canal narrowing. C2-3: No spinal canal or neural foraminal narrowing. C3-4: No spinal canal or neural foraminal narrowing. C4-5 through the thoracic spine: Metallic separate artifact compromises image detail of the spinal canal neural foramina. No gross evidence of severe spinal canal stenosis. Vascular calcifications. Partially visualized right CVC. Lung apices are clear. IMPRESSION: 1. Acute fractures of C2 consistent with hangman`s fracture. 2. No fractures C1 or the odontoid process. No instability at the atlantoaxial interval. 3. Grossly normal alignment of the cervical spine. 4. Chronic compression fracture of C7 with likely related extensive postoperative changes from the level of C4 through the visualized upper thoracic spine. 5. Findings called to the ER discussed with ordering physician at 1:30 p.m.. Please note that all CT scans at this facility use dose modulation, iterative reconstruction, and/or weight-based dosing when appropriate to reduce radiation dose to as low as reasonably achievable. Dictated by Ian Danielson MD @ Nov 03 2017 1:20PM (Electronic Signature) MTDD
== END 2017-11-03 13:45 ==
LOC: MW.ED 12:11
DX: S06.6X9A Traumatic subarachnoid hemorrhage with loss of consciousness of unspecified duration, initial encounter (principal); S12.100A Unspecified displaced fracture of second cervical vertebra, initial encounter for closed fracture; S12.600A Unspecified displaced fracture of seventh cervical vertebra, initial encounter for closed fracture; I25.2 Old myocardial infarction; I12.9 Hypertensive chronic kidney disease with stage 1 through stage 4 chronic kidney disease, or unspecified chronic kidney disease; N18.9 Chronic kidney disease, unspecified; E78.5 Hyperlipidemia, unspecified; Z88.0 Allergy status to penicillin; Z91.09 Other allergy status, other than to drugs and biological substances; Z79.82 Long term (current) use of aspirin; Z87.891 Personal history of nicotine dependence; Z99.2 Dependence on renal dialysis; W01.198A Fall on same level from slipping, tripping and stumbling with subsequent striking against other object, initial encounter
CPT/HCPCS: 36415; 70450; 70450-26; 72125; 72125-26; 80053; 82962; 85025; 85610; 93005; 99284; 99285-25

== ENCOUNTER 2017-12-25 12:03 | Emergency (ER) | payer MEDICARE ==
[2017-12-25 13:12] VITALS: BP 193/61
--- NOTE | 2017-12-25 13:39 | EDM.PDOC ---
ED HPI GENERAL MEDICAL PROBLEM - General Chief Complaint: General Stated Complaint: FALL Time Seen by Provider: 12/25/17 13:39 Source of Information: Reports: Patient History Limitations: Reports: No Limitations - History of Present Illness INITIAL COMMENTS - FREE TEXT/NARRATIVE: HISTORY AND PHYSICAL: []67 female presenting with concerns over head and neck pain History of Present Illness: []Patient states that someone move her wheelchair and she fell over sideways striking her head and now is complaining of head and neck pain She denies any loss of consciousness Review of Systems: As per history of present illness and below otherwise all systems reviewed and negative. Past medical history: As per history of present illness and as reviewed below otherwise noncontributory. Surgical history: As per history of present illness and as reviewed below otherwise noncontributory. Social history: No reported history of drug or alcohol abuse. Family history: As per history of present illness and as reviewed below otherwise noncontributory. Physical exam: Alert and oriented female answering questions appropriately in full sentences without any shortness of breath HEENT: Atraumatic, normocehpalic, pupils reactive, negative for conjunctival pallor or scleral icterus, mucous membranes moist, throat clear, neck supple, nontender, trachea midline. Lungs: Clear to auscultation, breath sounds equal bilaterally, chest non tender. Heart: S1S2, regular, negative for clicks, rubs, or JVD. Abdomen: Soft, nondistended, nontender. Negative for masses or hepatossplenmegaly. Negative for costovertebral tenderness. Pelvis: Stable nontender. Genitourinary: Deferred. Rectal: Deferred Extremities: Atraumatic, negative for cords or calf pain. Neurovascular unremarkable. Neuro: Awake, alert, oriented. Cranial nerves II through XII unremarkable. Cerebellum unremarkable. Motor and sensory unremarkable throughout. Exam nonfocal. Diagnostics: []Head CT Cervical spine CT Therapeutics: []Toradol Impression: []pain post fall Plan: []discharge no new fractures hardware intact Dialysis on mon as scheduled resume present meds Definitive disposition and diagnosis as appropriate pending reevaluation and review of above. Onset: Today, Sudden Head Pain Score (Numeric/FACES): 8 - Related Data Allergies Allergy/AdvReac Type Severity Reaction Status Date / Time iodine Allergy Airway Verified 12/25/17 13:04 Tightness Penicillins Allergy Rash Verified 12/25/17 13:04 shellfish derived Allergy Airway Verified 12/25/17 13:04 Tightness Home Meds: Home Meds Aspirin 81 mg PO DAILY 09/27/17 [History] Carvedilol 12.5 mg PO BID 09/27/17 [History] Cholecalciferol (Vitamin D3) [Vitamin D] 1 tab PO DAILY 09/27/17 [History] Gabapentin [Neurontin] 100 mg PO TID 09/27/17 [History] Ranitidine HCl [Ranitidine] 150 mg PO BEDTIME 09/27/17 [History] Sertraline [Zoloft] 50 mg PO BEDTIME 09/27/17 [History] Sevelamer Carbonate 2 tab PO TID 09/27/17 [History] Simvastatin [Zocor] 20 mg PO DAILY 09/27/17 [History] amLODIPine Besylate [Amlodipine Besylate] 10 mg PO DAILY 09/27/17 [History] Ferrous Sulfate 325 mg PO 11/03/17 [History] Insulin Detemir [Levemir] 12 units SQ DAILY 11/03/17 [History] Isosorbide Mononitrate [Imdur] 30 mg PO DAILY 11/03/17 [History] Levothyroxine 175 mcg PO ACBRK 11/03/17 [History] Past Medical History HEENT History: Reports: None Cardiovascular History: Reports: Hypertension, [place] Respiratory History: Reports: None Gastrointestinal History: Reports: None Genitourinary History: Reports: Chronic Renal Insuffiency, Dialysis, Other (See Below) Other Genitourinary History: On HD [employer] History: Reports: None Musculoskeletal History: Reports: Other (See Below) Other Musculoskeletal History: broken left shoulder Neurological History: Reports: None Psychiatric History: Reports: None Endocrine/Metabolic History: Reports: Other (See Below) Other Endocrine/Metabolic History: hyperlipedmia Hematologic History: Reports: None Immunologic History: Reports: None Oncologic (Cancer) History: Reports: None Dermatologic History: Reports: None - Infectious Disease History Infectious Disease History: Reports: Mumps - Past Surgical History Head Surgeries/Procedures: Reports: None HEENT Surgical History: Reports: None Cardiovascular Surgical History: Reports: Coronary Artery Bypass Respiratory Surgical History: Reports: None GI Surgical History: Reports: Appendectomy, Cholecystectomy Female Surgical History: Reports: None Neurological Surgical History: Reports: None Musculoskeletal Surgical History: Reports: Other (See Below) Oncologic Surgical History: Reports: None Dermatological Surgical History: Reports: None Social & Family History - Family History Family Medical History: Noncontributory - Tobacco Use Smoking Status *Q: Never Smoker - Caffeine Use Caffeine Use: Reports: Tea - Recreational Drug Use Recreational Drug Use: No ED ROS GENERAL - Review of Systems Review Of Systems: ROS reveals no pertinent complaints other than HPI. ED EXAM, GENERAL - Physical Exam Exam: See Below (see dictation) Course - Vital Signs Last Recorded V/S: Last Vital Signs Temp 36.1 C 12/25/17 13:04 Pulse 53 L 12/25/17 13:04 Resp 18 12/25/17 13:04 BP 193/61 H 12/25/17 13:04 Pulse Ox 94 L 12/25/17 13:04 - Orders/Labs/Meds Orders: Active Orders 24 hr Category Date Time Status Cervical Spine wo Cont [CT] Stat Exams 12/25/17 13:41 Taken Meds: Medications Discontinued Medications Generic Name Dose Route Start Last Admin Trade Name Nidia PRN Reason Stop Dose Admin Ketorolac Tromethamine 60 mg 12/25/17 14:40 12/25/17 15:24 Toradol IM 12/25/17 14:41 60 mg ONETIME ONE Administration Departure - Departure Time of Disposition: 17:23 Disposition: Home, Self-Care 01 Condition: Good Clinical Impression: Pain - Discharge Information Instructions: Musculoskeletal Pain Referrals: PCP,None [Primary Care Provider] - Forms: ED Department Discharge - My Orders Last 24 Hours: My Active Orders 12/25/17 13:41 Cervical Spine wo Cont [CT] Stat - Assessment/Plan Last 24 Hours: My Active Orders 12/25/17 13:41 Cervical Spine wo Cont [CT] Stat
[2017-12-25] MEDS ORDERED: Ketorolac 60 MG/2 ML SDV IM ONE (14:40)
--- NOTE | 2017-12-25 16:39 | CT ---
EXAM DATE: 12/25/17 PATIENT'S AGE: 67 Patient: YAZMIN LIMA Facility: [place], [place] Site . Site : 1950 Study: CT Head [id number] 2:28:43 PM Ordering Physician: Doctor Escalante Final Report: INDICATION: Fall, head injury TECHNIQUE: Head CT without contrast. COMPARISON: November 03, 2017 FINDINGS: CSF spaces: Within normal limits for age. Brain parenchyma: There are nonspecific low attenuation white matter changes consistent with chronic microvascular disease. No sign of mass, hemorrhage, or midline shift. Skull base and calvarium: The visualized paranasal sinuses and mastoid air cells demonstrate no acute or significant findings. The visualized orbits are grossly unremarkable. No skull fractures. IMPRESSION: No sign of acute injury. Stable age-related changes. Please note that all CT scans at this facility use dose modulation, iterative reconstruction, and/or weight-based dosing when appropriate to reduce radiation dose to as low as reasonably achievable. Dictated by Krish Catsillo MD @ Dec 25 2017 2:36PM (Electronic Signature) Report Signed by Proxy. [facility]
--- NOTE | 2017-12-25 18:19 | CT ---
EXAM DATE: 12/25/17 PATIENT'S AGE: 67 Patient: YAZMIN LIMA Facility: [place], [place] Site . Site : 1950 Study: CT Spine Cervical [id number]/2018 2:29:16 PM Ordering Physician: Doctor Escalante Final Report: INDICATION: Fall. History of C2 fracture. TECHNIQUE: Noncontrast CT images were acquired through the cervical spine. COMPARISON: CT cervical spine 11/03/2017. FINDINGS: Nondisplaced fractures of the right C2 pars interarticularis, as well as nondisplaced fracture of the of the left C2 pedicle and mildly displaced fracture of the left C2 lateral mass, not significantly changed compared to prior CT. No significant interval osseous bridging. No new fracture or spondylolisthesis is identified. No prevertebral soft tissue swelling. Postsurgical changes secondary to mature posterior instrumented fusion from C4 through the upper thoracic spine. The hardware is intact. Fixation screws on the left at C3 and C5 are positioned posteriorly to the dorsolateral fusion mass. The right C4 lateral mass screw is lateralized and may marginally extend into the dorsolateral fusion mass. The left T1-T3 pedicle screws extend across the left T1-2, T2-3, and T3-4 neural foramina, respectively. Severe chronic compression fracture of the C7 vertebral body demonstrating burst morphology associated with reversal of the cervical lordosis, similar to prior. Evaluation the spinal canal is limited secondary to surgical artifact. Atherosclerotic calcifications in the intracranial internal carotid arteries. Incompletely visualized postsurgical changes of sternotomy. Limited images through the lungs are notable for motion artifact and mild dependent atelectasis. IMPRESSION: 1. Transverse fractures involving the right C2 pars interarticularis as well as the left C2 pedicle and lateral mass, not significantly changed compared to prior CT. No significant interval osseous bridging. 2. No new acute fracture or spondylolisthesis. 3. Severe chronic compression fracture of the C7 vertebral body demonstrating burst morphology associated with reversal of the cervical lordosis. Evaluation of the spinal canal is limited secondary to hardware artifact. CT myelogram or MRI could be obtained for further evaluation as clinically warranted. 4. Postsurgical changes secondary to anterior posterior instrumented fusion from C4 through the upper thoracic spine. The hardware is intact. The left C3 and C5 pedicle screws are positioned posterior to the dorsolateral fusion mass. The left T1-T3 pedicle screws extend across the respective left neural foramina. Please note that all CT scans at this facility use dose modulation, iterative reconstruction, and/or weight-based dosing when appropriate to reduce radiation dose to as low as reasonably achievable. Dictated by Nav Canchola MD @ Dec 25 2017 4:42PM (Electronic Signature) Report Signed by Proxy. MTDD
== END 2017-12-25 17:45 | disposition home or self-care (01) ==
LOC: MW.ED 12:03
DX: R51 Headache (principal); M54.2 Cervicalgia; I12.9 Hypertensive chronic kidney disease with stage 1 through stage 4 chronic kidney disease, or unspecified chronic kidney disease; N18.9 Chronic kidney disease, unspecified; Z88.0 Allergy status to penicillin; Z91.013 Allergy to seafood; Z88.8 Allergy status to other drugs, medicaments and biological substances; Z79.82 Long term (current) use of aspirin; Z79.899 Other long term (current) drug therapy; Z99.2 Dependence on renal dialysis; W19.XXXA Unspecified fall, initial encounter
CPT/HCPCS: 70450; 72125; 96372; 99284; J1885; 99283

== ENCOUNTER 2017-12-27 19:20 | Emergency (ER) | payer MEDICARE ==
--- NOTE | 2017-12-27 19:53 | EDM.PDOC ---
ED HPI GENERAL MEDICAL PROBLEM - General Chief Complaint: Neurological Problem Stated Complaint: PT HAS CONFUSION Time Seen by Provider: 12/27/17 19:52 Source of Information: Reports: Patient History Limitations: Reports: No Limitations - History of Present Illness INITIAL COMMENTS - FREE TEXT/NARRATIVE: HISTORY AND PHYSICAL: History of present illness: 67-year-old [place] female presenting emergency department with sister for altered mental status starting at 929 with past medical history of type 2 diabetes on dialysis, and history of [place]. As per sister she visited with with patient at 01 28 and found her to be significantly confused. She is normally very responsive. Sister states she did not notice any facial drooping or weakness. [place] notes do report unusual disorientation and confusion. This is continued so sister brought her to the emergency room for further evaluation. Sister states that on Monday 12/25 she did hit her head and was seen here in the emergency department. CTA head and neck were negative at that time. Sr. states that on Monday they did see her primary care providers Dr. Alvares and Dr. Marie and patient was doing fine and conversing normally. As above patient was confused at 01 28 this morning with no significant focal neurologic deficits. Of note, patient was seen here on 11/03/17 after a fall and was found to have a subarachnoid hemorrhage of the right parietal para-facetal. At that time she was transferred to [facility] for further evaluation and treatment. Patient does have a history of type 2 diabetes and is on dialysis. Sr. thinks that she did have dialysis today and is scheduled for dialysis on and Monday. On talking with patient she is conversational. She is disoriented to person place and time. She currently only complaining of some mild neck pain from her previous fall on Monday. She denies any chest pain, palpitations, shortness of breath, and Trileptal, focal neurologic deficits. As above patient is disoriented to person place and time. No significant focal neurologic deficits noted on exam however exam somewhat difficult secondary to patient cooperation. Patient does have a right sided port for dialysis. There is mild swelling above right ear on parietal area that is tender to palpation. Cervical spine mildly tender to palpation. No other significant findings on exam. Initial Blood pressure 202/74. EKG: Normal sinus rhythm with no significant ST changes with prolonged QT with a QTC of 504 and a rate of 69 2100: CBC revealed leukocytosis of 14,000 blood cultures x2 as well as lactate pending. Rocephin 1 gram IV given. CMP revealed hypokalemia patient UA unremarkable CT head and neck unremarkable for acute pathology Lacate unremarkable CT abdomen and pelvis unremarkable Review of systems: As per history of present illness and below otherwise all systems reviewed and negative. Past medical history: As per history of present illness and as reviewed below otherwise noncontributory. Surgical history: As per history of present illness and as reviewed below otherwise noncontributory. Social history: No reported history of drug or alcohol abuse. Family history: As per history of present illness and as reviewed below otherwise noncontributory. Physical exam: HEENT: See above H&P normocephalic, pupils reactive, negative for conjunctival pallor or scleral icterus, mucous membranes moist, throat clear, neck supple, trachea midline. Lungs: bibasilar crackles, breath sounds equal bilaterally, chest nontender. Heart: S1S2, regular, negative for clicks, rubs, or JVD. Abdomen: Soft, nondistended, nontender. Negative for masses or hepatosplenomegaly. Negative for costovertebral tenderness. Pelvis: Stable nontender. Genitourinary: Deferred. Rectal: Deferred. Extremities: Atraumatic, negative for cords or calf pain. Neurovascular unremarkable. Neuro: Awake, alert, oriented. Cranial nerves II through XII unremarkable. Cerebellum unremarkable. Motor and sensory unremarkable throughout. Exam nonfocal. Diagnostics: CBC, CMP, INR, UA/UC, CT head and neck, chest x-ray, EKG, CT abdomen and pelvis Therapeutics: Levaquin 750 IV, Lasix 80 milligrams IV, captopril 25 mg by mouth 1 Impression: Altered mental status suspected new onset CHF Suspected pneumonia Hypertensive urgency Leukocytosis Hypokalemia Plan: Patient is requiring dialysis tomorrow and I suspect that her altered mental status may be secondary to an acute infection possible pneumonia. She did have improvement after Levaquin was given however I am not completely sure of source of leukocytosis. Possible beginning stages of pneumonia hidden by pulmonary congestion from new onset congestive heart failure. Secondary to all the above I did call [facility] where patient sees her other providers including long chain beamer for transfer which family did request. She will need dialysis tomorrow. Dr. Campos, hospitalist, did accept patient as a direct transfer. Definitive disposition and diagnosis as appropriate pending reevaluation and review of above. - Related Data Allergies Allergy/AdvReac Type Severity Reaction Status Date / Time iodine Allergy Airway Verified 12/27/17 20:19 Tightness Penicillins Allergy Rash Verified 12/27/17 20:19 shellfish derived Allergy Airway Verified 12/27/17 20:19 Tightness Home Meds: Home Meds Cholecalciferol (Vitamin D3) [Vitamin D] 1 tab PO DAILY 09/27/17 [History] Gabapentin [Neurontin] 100 mg PO TID 09/27/17 [History] Sertraline [Zoloft] 50 mg PO BEDTIME 09/27/17 [History] Sevelamer Carbonate 2 tab PO TID 09/27/17 [History] Simvastatin [Zocor] 20 mg PO DAILY 09/27/17 [History] Insulin Detemir [Levemir] 12 units SQ DAILY 11/03/17 [History] Levothyroxine 175 mcg PO ACBRK 11/03/17 [History] Acetaminophen [Tylenol Arthritis Pain] 1 tab PO Q4HR PRN 12/27/17 [History] Metoprolol Tartrate 1 tab PO BID 12/27/17 [History] Pantoprazole [ProTONIX] 1 tab PO BEDTIME 12/27/17 [History] Past Medical History HEENT History: Reports: None Cardiovascular History: Reports: Hypertension, [place] Respiratory History: Reports: None Gastrointestinal History: Reports: None Genitourinary History: Reports: Chronic Renal Insuffiency, Dialysis, Other (See Below) Other Genitourinary History: On HD FLIGHT COORDINATOR History: Reports: None Musculoskeletal History: Reports: Other (See Below) Other Musculoskeletal History: broken left shoulder Neurological History: Reports: None Psychiatric History: Reports: None Endocrine/Metabolic History: Reports: Other (See Below) Other Endocrine/Metabolic History: hyperlipedmia Hematologic History: Reports: None Immunologic History: Reports: None Oncologic (Cancer) History: Reports: None Dermatologic History: Reports: None - Infectious Disease History Infectious Disease History: Reports: Mumps - Past Surgical History Head Surgeries/Procedures: Reports: None HEENT Surgical History: Reports: None Cardiovascular Surgical History: Reports: Coronary Artery Bypass Respiratory Surgical History: Reports: None GI Surgical History: Reports: Appendectomy, Cholecystectomy Female Surgical History: Reports: None Neurological Surgical History: Reports: None Musculoskeletal Surgical History: Reports: Other (See Below) Oncologic Surgical History: Reports: None Dermatological Surgical History: Reports: None Social & Family History - Family History Family Medical History: Noncontributory - Caffeine Use Caffeine Use: Reports: Tea ED ROS GENERAL - Review of Systems Review Of Systems: ROS reveals no pertinent complaints other than HPI. ED EXAM, GENERAL - Physical Exam Exam: See Below Course - Vital Signs Last Recorded V/S: Last Vital Signs Temp 98.0 F 12/27/17 21:59 Pulse 58 L 12/28/17 00:24 Resp 16 12/28/17 00:24 BP 209/86 H 12/27/17 22:39 Pulse Ox 97 12/28/17 00:24 - Orders/Labs/Meds Orders: Active Orders 24 hr Category Date Time Status EKG 12 Lead [EKG Documentation Completion] [RC] STAT Care 12/27/17 20:10 Active [place] Catheter Insertion [Insert Urinary Catheter] [OM. Care 12/27/17 23:15 Ordered PC] Q24H Urinary Catheter Assessment [RC] ASDIRECTED Care 12/27/17 23:09 Active Abdomen Pelvis wo Cont [CT] Stat Exams 12/27/17 23:05 Taken Cervical Spine wo Cont [CT] Stat Exams 12/27/17 20:09 Taken Chest 1V Frontal [CR] Stat Exams 12/27/17 20:10 Taken Head wo Cont [CT] Stat Exams 12/27/17 20:09 Taken CULTURE BLOOD [BC] Stat Lab 12/27/17 22:18 Received CULTURE BLOOD [BC] Stat Lab 12/27/17 22:31 Received CULTURE URINE [RM] Stat Lab 12/27/17 21:30 Ordered UA W/MICROSCOPIC [URIN] Stat Lab 12/27/17 21:30 Ordered Captopril [Capoten] Med 12/28/17 00:29 Once 25 mg PO ONETIME ONE Blood Culture x2 Reflex Set [OM.PC] Stat Oth 12/27/17 22:00 Ordered Labs: Laboratory Tests 12/27/17 12/27/17 12/27/17 Range/Units 20:30 20:30 20:30 WBC 14.09 H (4.0-11.0) K/uL RBC 3.35 L (4.30-5.90) M/uL Hgb 10.4 L (12.0-16.0) g/dL Hct 31.2 L (36.0-46.0) % MCV 93.1 (80.0-98.0) fL MCH 31.0 (27.0-32.0) pg MCHC 33.3 (31.0-37.0) g/dL RDW Std Deviation 48.5 (28.0-62.0) fl RDW Coeff of Edyta 14 (11.0-15.0) % Plt Count 291 (150-400) K/uL MPV 10.20 (7.40-12.00) fL Neut % (Auto) 86.6 H (48.0-80.0) % Lymph % (Auto) 6.6 L (16.0-40.0) % [place] % (Auto) 6.7 (0.0-15.0) % Eos % (Auto) 0.0 (0.0-7.0) % Baso % (Auto) 0.1 (0.0-1.5) % Neut # (Auto) 12.2 H (1.4-5.7) K/uL Lymph # (Auto) 0.9 (0.6-2.4) K/uL [place] # (Auto) 1.0 H (0.0-0.8) K/uL Eos # (Auto) 0.0 (0.0-0.7) K/uL Baso # (Auto) 0.0 (0.0-0.1) K/uL Nucleated RBC % 0.0 /100WBC Nucleated RBCs # 0 K/uL INR 1.11 Lactate (0.20-2.00) mmol/L Sodium 136 (136-145) mmol/L Potassium 2.8 L (3.5-5.1) mmol/L Chloride 98 (98-107) mmol/L Carbon Dioxide 31.0 (21.0-32.0) mmol/L BUN 24 H (7.0-18.0) mg/dL Creatinine 3.0 H (0.6-1.0) mg/dL Est Cr Clr Drug Dosing TNP Estimated GFR (MDRD) 15.5 ml/min Glucose 145 H (74-106) mg/dL Calcium 8.9 (8.5-10.1) mg/dL Total Bilirubin 0.5 (0.2-1.0) mg/dL AST 10 L (15-37) IU/L ALT 12 L (14-63) IU/L Alkaline Phosphatase 166 H (46-116) U/L B-Natriuretic Peptide (<100) PG/ML Total Protein 6.8 (6.4-8.2) g/dL Albumin 3.4 (3.4-5.0) g/dL Globulin 3.4 (2.0-3.5) g/dL Albumin/Globulin Ratio 1.0 L (1.3-2.8) Urine Color Urine Appearance Urine pH (5.0-8.0) Ur Specific [place] (1.001-1.035) Urine Protein (NEGATIVE) mg/dL Urine Glucose (UA) (NEGATIVE) mg/dL Urine Ketones (NEGATIVE) mg/dL Urine Occult Blood (NEGATIVE) Urine Nitrite (NEGATIVE) Urine Bilirubin (NEGATIVE) Urine Urobilinogen (<2.0) EU/dL Ur Leukocyte Esterase (NEGATIVE) Urine RBC (0-2/HPF) Urine WBC (0-5/HPF) Ur Epithelial Cells (NONE-FEW) Amorphous Sediment (NEGATIVE) Urine Bacteria (NEGATIVE) Urine Mucus (NONE-MOD) 12/27/17 12/27/17 12/27/17 Range/Units 20:30 21:30 22:18 WBC (4.0-11.0) K/uL RBC (4.30-5.90) M/uL Hgb (12.0-16.0) g/dL Hct (36.0-46.0) % MCV (80.0-98.0) fL MCH (27.0-32.0) pg MCHC (31.0-37.0) g/dL RDW Std Deviation (28.0-62.0) fl RDW Coeff of Edyta (11.0-15.0) % Plt Count (150-400) K/uL MPV (7.40-12.00) fL Neut % (Auto) (48.0-80.0) % Lymph % (Auto) (16.0-40.0) % [place] % (Auto) (0.0-15.0) % Eos % (Auto) (0.0-7.0) % Baso % (Auto) (0.0-1.5) % Neut # (Auto) (1.4-5.7) K/uL Lymph # (Auto) (0.6-2.4) K/uL [place] # (Auto) (0.0-0.8) K/uL Eos # (Auto) (0.0-0.7) K/uL Baso # (Auto) (0.0-0.1) K/uL Nucleated RBC % /100WBC Nucleated RBCs # K/uL INR Lactate 1.1 (0.20-2.00) mmol/L Sodium (136-145) mmol/L Potassium (3.5-5.1) mmol/L Chloride (98-107) mmol/L Carbon Dioxide (21.0-32.0) mmol/L BUN (7.0-18.0) mg/dL Creatinine (0.6-1.0) mg/dL Est Cr Clr Drug Dosing Estimated GFR (MDRD) ml/min Glucose (74-106) mg/dL Calcium (8.5-10.1) mg/dL Total Bilirubin (0.2-1.0) mg/dL AST (15-37) IU/L ALT (14-63) IU/L Alkaline Phosphatase (46-116) U/L B-Natriuretic Peptide > 3306 H (<100) PG/ML Total Protein (6.4-8.2) g/dL Albumin (3.4-5.0) g/dL Globulin (2.0-3.5) g/dL Albumin/Globulin Ratio (1.3-2.8) Urine Color YELLOW Urine Appearance CLEAR Urine pH 7.5 (5.0-8.0) Ur Specific [place] 1.015 (1.001-1.035) Urine Protein >=300 (NEGATIVE) mg/dL Urine Glucose (UA) 250 H (NEGATIVE) mg/dL Urine Ketones NEGATIVE (NEGATIVE) mg/dL Urine Occult Blood TRACE-INTACT (NEGATIVE) Urine Nitrite NEGATIVE (NEGATIVE) Urine Bilirubin NEGATIVE (NEGATIVE) Urine Urobilinogen 0.2 (<2.0) EU/dL Ur Leukocyte Esterase NEGATIVE (NEGATIVE) Urine RBC 1-3 (0-2/HPF) Urine WBC 2-3 (0-5/HPF) Ur Epithelial Cells OCCASIONAL (NONE-FEW) Amorphous Sediment FEW (NEGATIVE) Urine Bacteria FEW (NEGATIVE) Urine Mucus FEW (NONE-MOD) Meds: Medications Discontinued Medications Generic Name Dose Route Start Last Admin Trade Name Nidia PRN Reason Stop Dose Admin Furosemide 80 mg 12/27/17 23:08 12/28/17 00:02 Lasix IVPUSH 12/27/17 23:09 80 mg NOW ONE Administration Levofloxacin/Dextrose 750 mg/ 150 mls @ 100 mls/hr 12/27/17 21:59 12/27/17 22 :40 Premix IV 12/27/17 23:28 100 mls/hr ONETIME ONE Administration Potassium Chloride 40 meq 12/27/17 22:04 12/27/17 22:16 Potassium Chloride PO 12/27/17 22:05 Not Given ONETIME ONE Potassium Chloride 40 meq 12/27/17 22:11 12/27/17 22:40 Klor-Con M20 PO 12/27/17 22:12 40 meq ONETIME ONE Administration Departure - Departure Time of Disposition: 00:34 Disposition: DC/Tfer to Other 70 Condition: Fair Clinical Impression: Chronic renal failure, stage 4 (severe) Altered mental status Qualifiers: Altered mental status type: disorientation Qualified Code(s): R41.0 - Disorientation, unspecified CHF (congestive heart failure) Qualifiers: Heart failure type: unspecified Heart failure chronicity: acute Qualified Code( s): I50.9 - Heart failure, unspecified Leukocytosis Qualifiers: Leukocytosis type: unspecified Qualified Code(s): D72.829 - Elevated white blood cell count, unspecified - Discharge Information Referrals: PCP,None [Primary Care Provider] - Forms: ED Department Discharge - My Orders Last 24 Hours: My Active Orders 12/27/17 20:09 Cervical Spine wo Cont [CT] Stat Head wo Cont [CT] Stat 12/27/17 20:10 EKG 12 Lead [EKG Documentation Completion] [RC] STAT Chest 1V Frontal [CR] Stat 12/27/17 21:30 CULTURE URINE [RM] Stat UA W/MICROSCOPIC [URIN] Stat 12/27/17 22:00 Blood Culture x2 Reflex Set [OM.PC] Stat 12/27/17 22:18 CULTURE BLOOD [BC] Stat 12/27/17 22:31 CULTURE BLOOD [BC] Stat 12/27/17 23:05 Abdomen Pelvis wo Cont [CT] Stat 12/27/17 23:09 Urinary Catheter Assessment [RC] ASDIRECTED 12/27/17 23:15 [place] Catheter Insertion [Insert Urinary Catheter] [OM.PC] Q24H 12/28/17 00:29 Captopril [Capoten] 25 mg PO ONETIME ONE - Assessment/Plan Last 24 Hours: My Active Orders 12/27/17 20:09 Cervical Spine wo Cont [CT] Stat Head wo Cont [CT] Stat 12/27/17 20:10 EKG 12 Lead [EKG Documentation Completion] [RC] STAT Chest 1V Frontal [CR] Stat 12/27/17 21:30 CULTURE URINE [RM] Stat UA W/MICROSCOPIC [URIN] Stat 12/27/17 22:00 Blood Culture x2 Reflex Set [OM.PC] Stat 12/27/17 22:18 CULTURE BLOOD [BC] Stat 12/27/17 22:31 CULTURE BLOOD [BC] Stat 12/27/17 23:05 Abdomen Pelvis wo Cont [CT] Stat 12/27/17 23:09 Urinary Catheter Assessment [RC] ASDIRECTED 12/27/17 23:15 [place] Catheter Insertion [Insert Urinary Catheter] [OM.PC] Q24H 12/28/17 00:29 Captopril [Capoten] 25 mg PO ONETIME ONE
[2017-12-27 20:58] LABS: CHLORIDE,CL 98 mmol/L (98-107); SODIUM,NA 136 mmol/L (136-145)
[2017-12-27] MEDS ORDERED: Levofloxacin/Dextrose 5%-Water 750 MG in Premix Bag 1 BAG IV ONE (21:59)
[2017-12-27] MEDS ORDERED: Potassium Chloride 10% 20 MEQ/15 ML Soln 30 ML UD Cup PO ONE (22:04)
[2017-12-27] MEDS ORDERED: Potassium Chloride 20 MEQ Tab.ER PO ONE (22:11)
[2017-12-27] MEDS ORDERED: Furosemide 40 MG/4 ML VIAL IVPUSH ONE (23:08)
[2017-12-28 01:02] VITALS: BP 148/81
[2017-12-28] MEDS ORDERED: LORazepam 2 MG/ML SDV IVPUSH ONE (01:43)
--- NOTE | 2017-12-28 10:33 | CT ---
EXAM DATE: 12/27/17 PATIENT'S AGE: 67 Patient: YAZMIN LIMA Facility: [place], [place] Site . Site : 1950 Study: CT Spine Cervical [id number]/29/2018 9:24:26 PM Ordering Physician: Trevor Aiken Final Report: INDICATION: Confusion TECHNIQUE: CT cervical spine without contrast. COMPARISON: 11/03/2017. FINDINGS: Vertebral alignment: Alignment is normal. Vertebrae: Stable bilateral C2 pars interarticularis and left C2 lateral mass/ pedicle fractures. Stable severe C7 compression fracture. Stable appearance of posterior cervicothoracic spinal fixation hardware. Discs and facet joints: Disc spaces and facets are within normal limits. Extraspinal findings: Prevertebral soft tissues, visualized airway, and visualized lungs are unremarkable. IMPRESSION: Stable appearance of bilateral C2 pars interarticularis and left C2 lateral mass /pedicle fractures. Stable C7 compression fracture. Stable positioning appearance of posterior cervicothoracic spinal fixation hardware. Dictated by Joseph Barth MD @ 12/27/2017 9:32:22 PM Dictated by: Joseph Barth MD @ 12/27/2017 21:32:27 (Electronic Signature) Report Signed by Proxy. KEENAN
--- NOTE | 2017-12-28 10:35 | CT ---
EXAM DATE: 12/27/17 PATIENT'S AGE: 67 Patient: YAZMIN LIMA Facility: [place], [place] Site . Site : 1950 Study: CT Head [id number]/29/2018 9:24:54 PM Ordering Physician: Trevor Aiken Final Report: INDICATION: New onset confusion, history of subarachnoid hemorrhage TECHNIQUE: CT head without contrast. COMPARISON: 12/25/2017 FINDINGS: CSF spaces: Within normal limits for age. Brain parenchyma: The townsend-white differentiation is normal. No sign of mass, hemorrhage, or midline shift. Diffuse volume loss. Periventricular white matter changes consistent with chronic microvascular disease. Skull base and calvarium: The visualized paranasal sinuses and mastoid air cells demonstrate no acute or significant findings. The visualized orbits are grossly unremarkable. No skull fractures. IMPRESSION: No acute intracranial abnormalities. Periventricular white matter changes consistent with chronic microvascular disease. Diffuse volume loss. Dictated by Joseph Barth MD @ 12/27/2017 9:35:57 PM Dictated by: Joseph Barth MD @ 12/27/2017 21:36:16 (Electronic Signature) Report Signed by Proxy. KEENAN
--- NOTE | 2017-12-28 10:36 | CR ---
EXAM DATE: 12/27/17 PATIENT'S AGE: 67 Patient: YAZMIN LIMA Facility: [place], [place] Site . Site : 1950 Study: XRay Chest [id number]/29/2018 9:25:52 PM Ordering Physician: Trevor Aiken Final Report: INDICATION: Shortness of breath TECHNIQUE: Chest radiograph 1 view COMPARISON: None FINDINGS: Moderate degradation of image quality noted due to body habitus. Mediastinum: Previous median sternotomy and coronary artery bypass grafting ( CABG) noted. Moderate cardiomegaly is noted. Right IJ dialysis catheter noted with the tip in the SVC. Lung: Moderate pulmonary vascular congestion seen. No sign of pleural effusion seen. No pneumothorax is identified. Musculoskeletal: Posterior spinal fusion of the cervicothoracic junction is partially visualized. IMPRESSIONS: 1. Moderate cardiomegaly is noted. 2. Moderate pulmonary vascular congestion seen. Dictated by Hiram Youssef MD @ 12/27/2017 9:29:13 PM Dictated by: Hiram Youssef MD @ 12/27/2017 21:29:16 (Electronic Signature) Report Signed by Proxy. [facility]
--- NOTE | 2017-12-28 10:50 | CT ---
EXAM DATE: 12/27/17 PATIENT'S AGE: 67 Patient: YAZMIN LIMA Facility: [place], [place] Site . Site : 1950 Study: CT Abdomen/Pelvis [id number]/29/2018 11:32:34 PM Ordering Physician: Trevor Aiken Final Report: INDICATION: Elevated white blood cell count, generalized abdominal pain TECHNIQUE: CT abdomen and pelvis without contrast. COMPARISON: None. FINDINGS: Lower chest: Cardiomegaly. Liver: Unremarkable. Spleen: Unremarkable. Pancreas: Unremarkable. Gallbladder and bile ducts: The gallbladder is absent. Kidneys: Bilateral renal cortical atrophy. No kidney or ureteral stones and no hydronephrosis. Adrenal glands: Unremarkable. GI tract: Colonic fecal retention. The appendix is not visualized. Vascular structures: Unremarkable. Lymph nodes: Unremarkable. Miscellaneous: Unremarkable. No free air or significant free fluid. Pelvic Organs: Unremarkable. Bones: Bilateral L5 pars defects with grade 1 anterolisthesis L5 over S1. IMPRESSION: No findings to explain the patient`s symptoms. Cardiomegaly. Bilateral renal cortical atrophy. The gallbladder and appendix are not visualized. Bilateral L5 pars defects with grade 1 anterolisthesis L5 over S1. Dictated by Joseph Barth MD @ 12/28/2017 12:05:07 AM Dictated by: Joseph Barth MD @ 12/28/2017 00:10:04 (Electronic Signature) Report Signed by Proxy. [facility]
== END 2017-12-28 02:00 | disposition other institution (70) ==
LOC: MW.ED 19:20
DX: I16.0 Hypertensive urgency (principal); I13.0 Hypertensive heart and chronic kidney disease with heart failure and stage 1 through stage 4 chronic kidney disease, or unspecified chronic kidney disease; N18.4 Chronic kidney disease, stage 4 (severe); E11.22 Type 2 diabetes mellitus with diabetic chronic kidney disease; I25.2 Old myocardial infarction; E78.5 Hyperlipidemia, unspecified; I50.9 Heart failure, unspecified; D72.829 Elevated white blood cell count, unspecified; R41.0 Disorientation, unspecified; Z99.2 Dependence on renal dialysis
CPT/HCPCS: 36415; 70450; 71045; 72125; 74176; 80053; 81001; 83605; 83880; 85025; 85610; 87040; 87086; 93005; 96365; 96366; 96375; 99285; A9270; J1940; J1956

== ENCOUNTER 2018-06-27 16:54 | Observation (INO) | payer MEDICARE ==
[2018-06-27] MEDS ORDERED: Albuterol/Ipratropium 3.0-0.5 MG/3 ML Neb Soln NEB ONE (17:15)
[2018-06-27] MEDS ORDERED: Sodium Chloride 0.9% 1,000 ML IV ONE (17:15)
--- NOTE | 2018-06-27 17:16 | EDM.PDOC ---
ED HPI GENERAL MEDICAL PROBLEM - General Chief Complaint: Respiratory Problem Stated Complaint: SOB Time Seen by Provider: 06/27/18 17:15 Source of Information: Reports: Patient - History of Present Illness INITIAL COMMENTS - FREE TEXT/NARRATIVE: HISTORY AND PHYSICAL: History of present illness: [Patient was in dialysis today complains of shortness of breath, also states this is an increase from her baseline she presents with no diaphoresis denies chest pain, exam she does have some significant wheezing didn't improve with DuoNeb her O2 sat on room air is 87% this is down from [facility] stated baseline of 90% she has not required any additional oxygen over the last year No chest pain or diaphoresis no fever nausea vomiting chills sweats ] Review of systems: As per history of present illness and below otherwise all systems reviewed and negative. Past medical history: As per history of present illness and as reviewed below otherwise noncontributory. Surgical history: As per history of present illness and as reviewed below otherwise noncontributory. Social history: No reported history of drug or alcohol abuse. Family history: As per history of present illness and as reviewed below otherwise noncontributory. Physical exam: HEENT: Atraumatic, normocephalic, pupils reactive, negative for conjunctival pallor or scleral icterus, mucous membranes moist, throat clear, neck supple, nontender, trachea midline. Lungs: Clear to auscultation, breath sounds equal bilaterally, chest nontender. Heart: S1S2, regular, negative for clicks, rubs, or JVD. Abdomen: Soft, nondistended, nontender. Negative for masses or hepatosplenomegaly. Negative for costovertebral tenderness. Pelvis: Stable nontender. Genitourinary: Deferred. Rectal: Deferred. Extremities: Atraumatic, negative for cords or calf pain. Neurovascular unremarkable. Neuro: Awake, alert, oriented. Cranial nerves II through XII unremarkable. Cerebellum unremarkable. Motor and sensory unremarkable throughout. Exam nonfocal. Diagnostics: [CBC CMP UA INR troponin influenza Chest 1 view EKG ] Therapeutics: [ normal saline DuoNeb Solu-Medrol- 125 mg IV Aspirin 324 mg chewable Lasix20 mg IV Impression: Hypoxia 87% on room air CHF Elevated troponin [ short of breath End-stage renal disease on dialysis Chronic history at baseline ] Definitive disposition and diagnosis as appropriate pending reevaluation and review of above. - Related Data Allergies Allergy/AdvReac Type Severity Reaction Status Date / Time iodine Allergy Airway Verified 06/27/18 17:07 Tightness Penicillins Allergy Rash Verified 06/27/18 17:07 shellfish derived Allergy Airway Verified 06/27/18 17:07 Tightness Home Meds: Home Meds Cholecalciferol (Vitamin D3) [Vitamin D] 5,000 unit PO DAILY 09/27/17 [History] Gabapentin [Neurontin] 100 mg PO TID 09/27/17 [History] Sertraline [Zoloft] 50 mg PO BEDTIME 09/27/17 [History] Simvastatin [Zocor] 20 mg PO BEDTIME 09/27/17 [History] Insulin Detemir [Levemir] 14 units SQ DAILY 11/03/17 [History] Levothyroxine 175 mcg PO ACBREAKFAST 11/03/17 [History] Acetaminophen [Tylenol Arthritis Pain] 1 tab PO Q6HR PRN 12/27/17 [History] Pantoprazole [ProTONIX] 40 mg PO BEDTIME 12/27/17 [History] Bisacodyl [Dulcolax] 10 tab PO DAILY 02/14/18 [History] Calcium Carbonate [Calci-Chew] 500 mg PO Q6HR PRN 02/14/18 [History] Insulin Aspart [NovoLOG] 0 units SQ TIDMEALS 02/14/18 [History] Insulin Detemir [Levemir Flextouch] 5 units SQ BEDTIME 02/14/18 [History] amLODIPine Besylate [Norvasc] 10 mg PO DAILY 02/14/18 [History] Albuterol Sulfate 2.5 mg INH Q4H PRN 06/27/18 [History] Aspirin 81 mg PO DAILY 06/27/18 [History] Budesonide [Pulmicort] 0.5 mg INH BID 06/27/18 [History] Calcium Acetate [PhosLo] 667 mg PO TIDMEALS 06/27/18 [History] Carvedilol 25 mg PO BID 06/27/18 [History] Docusate Sodium [Colace] 100 mg PO DAILY 06/27/18 [History] Famotidine 40 mg PO DAILY 06/27/18 [History] Sodium Chloride [Saline Nasal [place]] 1 spray NS Q2H PRN 06/27/18 [History] Past Medical History HEENT History: Reports: None Cardiovascular History: Reports: Hypertension, [place] Respiratory History: Reports: None Gastrointestinal History: Reports: None Genitourinary History: Reports: Chronic Renal Insuffiency, Dialysis, Other (See Below) Other Genitourinary History: 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 Musculoskeletal History: Reports: Other (See Below) Other Musculoskeletal History: broken left shoulder Neurological History: Reports: None Psychiatric History: Reports: None Endocrine/Metabolic History: Reports: Other (See Below) Other Endocrine/Metabolic History: hyperlipedmia Hematologic History: Reports: None Immunologic History: Reports: None Oncologic (Cancer) History: Reports: None Dermatologic History: Reports: None - Infectious Disease History Infectious Disease History: Reports: Mumps - Past Surgical History Head Surgeries/Procedures: Reports: None HEENT Surgical History: Reports: None Cardiovascular Surgical History: Reports: Coronary Artery Bypass Respiratory Surgical History: Reports: None GI Surgical History: Reports: Appendectomy, Cholecystectomy Female Surgical History: Reports: None Neurological Surgical History: Reports: None Musculoskeletal Surgical History: Reports: Other (See Below) Oncologic Surgical History: Reports: None Dermatological Surgical History: Reports: None Social & Family History - Family History Family Medical History: Noncontributory - Tobacco Use Smoking Status *Q: Never Smoker - Caffeine Use Caffeine Use: Reports: Tea - Recreational Drug Use Recreational Drug Use: No ED ROS GENERAL - Review of Systems Review Of Systems: See Below ED EXAM, GENERAL - Physical Exam Exam: See Below Course - Vital Signs Last Recorded V/S: Last Vital Signs Temp 98.3 F 06/27/18 18:24 Pulse 6 L 06/27/18 18:24 Resp 20 06/27/18 18:24 BP 162/59 H 06/27/18 18:24 Pulse Ox 93 L 06/27/18 18:24 - Orders/Labs/Meds Orders: Active Orders 24 hr Category Date Time Status EKG Documentation Completion [RC] STAT Care 06/27/18 17:15 Active RT Aerosol Therapy [RC] ASDIRECTED Care 06/27/18 17:15 Active Chest 1V Frontal [CR] Stat Exams 06/27/18 17:15 Taken CULTURE BLOOD [BC] Stat Lab 06/27/18 17:30 Received CULTURE BLOOD [BC] Stat Lab 06/27/18 17:45 Results Blood Culture x2 Reflex Set [OM.PC] Stat [facility] 06/27/18 17:15 Ordered Labs: Laboratory Tests 06/27/18 06/27/18 06/27/18 Range/Units 17:30 17:30 17:30 WBC 4.96 (4.0-11.0) K/uL RBC 3.51 L (4.30-5.90) M/uL Hgb 11.1 L (12.0-16.0) g/dL Hct 32.4 L (36.0-46.0) % MCV 92.3 (80.0-98.0) fL MCH 31.6 (27.0-32.0) pg MCHC 34.3 (31.0-37.0) g/dL RDW Std Deviation 43.4 (28.0-62.0) fl RDW Coeff of Edyta 13 (11.0-15.0) % Plt Count 183 (150-400) K/uL MPV 11.30 (7.40-12.00) fL Neut % (Auto) 76.4 (48.0-80.0) % Lymph % (Auto) 10.7 L (16.0-40.0) % [place] % (Auto) 8.9 (0.0-15.0) % Eos % (Auto) 3.8 (0.0-7.0) % Baso % (Auto) 0.2 (0.0-1.5) % Neut # (Auto) 3.8 (1.4-5.7) K/uL Lymph # (Auto) 0.5 L (0.6-2.4) K/uL [place] # (Auto) 0.4 (0.0-0.8) K/uL Eos # (Auto) 0.2 (0.0-0.7) K/uL Baso # (Auto) 0.0 (0.0-0.1) K/uL Nucleated RBC % 0.0 /100WBC Nucleated RBCs # 0 K/uL INR 1.03 Sodium 135 L (136-145) mmol/L Potassium 3.7 (3.5-5.1) mmol/L Chloride 95 L (98-107) mmol/L Carbon Dioxide 34.6 H (21.0-32.0) mmol/L BUN 13 (7.0-18.0) mg/dL Creatinine 1.8 H (0.6-1.0) mg/dL Est Cr Clr Drug Dosing 23.33 mL/min Estimated GFR (MDRD) 27.9 ml/min Glucose 110 H (74-106) mg/dL Calcium 8.5 (8.5-10.1) mg/dL Total Bilirubin 0.6 (0.2-1.0) mg/dL AST 19 (15-37) IU/L ALT 10 L (14-63) IU/L Alkaline Phosphatase 114 (46-116) U/L Troponin I 0.088 H* (0.000-0.056) ng/mL B-Natriuretic Peptide (<100) PG/ML Total Protein 7.1 (6.4-8.2) g/dL Albumin 3.3 L (3.4-5.0) g/dL Globulin 3.8 (2.6-4.0) g/dL Albumin/Globulin Ratio 0.9 (0.9-1.6) 06/27/18 Range/Units 17:30 WBC (4.0-11.0) K/uL RBC (4.30-5.90) M/uL Hgb (12.0-16.0) g/dL Hct (36.0-46.0) % MCV (80.0-98.0) fL MCH (27.0-32.0) pg MCHC (31.0-37.0) g/dL RDW Std Deviation (28.0-62.0) fl RDW Coeff of Edyta (11.0-15.0) % Plt Count (150-400) K/uL MPV (7.40-12.00) fL Neut % (Auto) (48.0-80.0) % Lymph % (Auto) (16.0-40.0) % [place] % (Auto) (0.0-15.0) % Eos % (Auto) (0.0-7.0) % Baso % (Auto) (0.0-1.5) % Neut # (Auto) (1.4-5.7) K/uL Lymph # (Auto) (0.6-2.4) K/uL [place] # (Auto) (0.0-0.8) K/uL Eos # (Auto) (0.0-0.7) K/uL Baso # (Auto) (0.0-0.1) K/uL Nucleated RBC % /100WBC Nucleated RBCs # K/uL INR Sodium (136-145) mmol/L Potassium (3.5-5.1) mmol/L Chloride (98-107) mmol/L Carbon Dioxide (21.0-32.0) mmol/L BUN (7.0-18.0) mg/dL Creatinine (0.6-1.0) mg/dL Est Cr Clr Drug Dosing mL/min Estimated GFR (MDRD) ml/min Glucose (74-106) mg/dL Calcium (8.5-10.1) mg/dL Total Bilirubin (0.2-1.0) mg/dL AST (15-37) IU/L ALT (14-63) IU/L Alkaline Phosphatase (46-116) U/L Troponin I (0.000-0.056) ng/mL B-Natriuretic Peptide 1221 H (<100) PG/ML Total Protein (6.4-8.2) g/dL Albumin (3.4-5.0) g/dL Globulin (2.6-4.0) g/dL Albumin/Globulin Ratio (0.9-1.6) Meds: Medications Discontinued Medications Generic Name Dose Route Start Last Admin Trade Name Freq PRN Reason Stop Dose Admin Albuterol/Ipratropium 3 ml 06/27/18 17:15 06/27/18 17:41 Duoneb 3.0-0.5 Mg/3 Ml NEB 06/27/18 17:16 3 ml ONETIME ONE Administration Aspirin 324 mg 06/27/18 19:27 06/27/18 19:39 Aspirin PO 06/27/18 19:28 324 mg ONETIME ONE Administration Furosemide 20 mg 06/27/18 19:22 06/27/18 19:40 Lasix IVPUSH 06/27/18 19:23 20 mg NOW ONE Administration Sodium Chloride 1,000 mls @ 999 mls/hr 06/27/18 17:15 06/27/18 17:47 Normal Saline IV 06/27/18 18:15 999 mls/hr STAT ONE Administration Methylprednisolone Sodium Succinate 125 mg 06/27/18 19:22 06/27/18 19:39 Solu-Medrol IVPUSH 06/27/18 19:23 125 mg ONETIME ONE Administration Departure - Departure Time of Disposition: 19:53 Disposition: Refer to Observation Condition: Poor Clinical Impression: Hypoxia, Elevated troponin - Discharge Information Referrals: Brandon Sommers MD [Primary Care Provider] - Forms: ED Department Discharge - My Orders Last 24 Hours: My Active Orders 06/27/18 17:15 EKG Documentation Completion [RC] STAT RT Aerosol Therapy [RC] ASDIRECTED Chest 1V Frontal [CR] Stat Blood Culture x2 Reflex Set [OM.PC] Stat 06/27/18 17:30 CULTURE BLOOD [BC] Stat 06/27/18 17:45 CULTURE BLOOD [BC] Stat - Assessment/Plan Last 24 Hours: My Active Orders 06/27/18 17:15 EKG Documentation Completion [RC] STAT RT Aerosol Therapy [RC] ASDIRECTED Chest 1V Frontal [CR] Stat Blood Culture x2 Reflex Set [OM.PC] Stat 06/27/18 17:30 CULTURE BLOOD [BC] Stat 06/27/18 17:45 CULTURE BLOOD [BC] Stat
[2018-06-27] MEDS ORDERED: methylPREDNISolone Sodium Succinate 125 MG/2 ML SDV IVPUSH ONE (19:22)
[2018-06-27] MEDS ORDERED: Furosemide 40 MG/4 ML VIAL IVPUSH ONE (19:22)
[2018-06-27] MEDS ORDERED: Aspirin 81 MG Tab.Chew PO ONE (19:27)
[2018-06-27] MEDS ORDERED: Acetaminophen 500 MG Tab PO PRN (22:46)
[2018-06-27] MEDS ORDERED: Albuterol/Ipratropium 3.0-0.5 MG/3 ML Neb Soln NEB PRN (22:47)
[2018-06-27] MEDS ORDERED: cloNIDine 0.1 MG Tab PO PRN (22:49)
[2018-06-27] MEDS ORDERED: Simvastatin 20 MG Tab PO SCH (23:00)
[2018-06-27] MEDS: Sertraline 50 MG Tab PO SCH (23:52)
[2018-06-27] MEDS: Carvedilol 25 MG Tab PO SCH (23:52)
[2018-06-27] MEDS: Gabapentin 100 MG Cap PO SCH (23:52)
[2018-06-28] MEDS ORDERED: Budesonide 0.5 MG/2 ML Neb Susp NEB SCH (06:00)
[2018-06-28] MEDS: Levothyroxine 25 MCG Tab PO SCH ×2 (06:04→06:36)
[2018-06-28] MEDS: Levothyroxine 150 MCG Tab PO SCH ×2 (06:05→06:36)
[2018-06-28] MEDS: Gabapentin 100 MG Cap PO SCH (06:05)
[2018-06-28] MEDS ORDERED: Insulin Detemir 100 Units/ML 3 ML Pen SUBCUT SCH (08:00)
[2018-06-28] MEDS: Sertraline 50 MG Tab PO SCH (08:07)
[2018-06-28] MEDS: Carvedilol 25 MG Tab PO SCH (08:12)
[2018-06-28] MEDS: Insulin Aspart 100 Units/ML 3 ML Pen SUBCUT SCH ×2 (08:23→11:52)
--- NOTE | 2018-06-28 08:23 | PCM.HP ---
H&P History of Present Illness - General Date of Service: 06/28/18 Admit Problem/Dx: Admission Diagnosis/Problem Admission Diagnosis/Problem Hypoxia Source of Information: Patient, Old Records History Limitations: Reports: No Limitations - History of Present Illness Initial Comments - Free Text/Narative: This 68 year old female with pmh of end stage renal disease on hemodialysis, HTN , with hx of MD, DM Type 2, hypothyroidism and oxygen dependence presented from Dialysis with complaints of increased shortness of breath. She reports she started feeling short of breath after dialysis and more than her usual. She reports hacking cough, non productive. Some sinus congestion, no fevers or chills. No headache, neck pain or abdominal pain. No leg swelling or leg pain. No chest pain or palpitations with this shortness of breath. She reports being on oxygen intermittently at [facility]. In the ED no leukocytosis noted, BUN 13 and cr 1.8. Troponin elevated at 0.088, EKG, no acute ST changes. CXR showed mild vascular congestion. She was given 1 L fluids, lasix 20 mg and Solumedrol in the ED along with nebulizers. She was recommended for admission by the ED for shortness of breath. - Related Data Allergies/Adverse Reactions: Allergies Allergy/AdvReac Type Severity Reaction Status Date / Time iodine Allergy Airway Verified 06/27/18 17:07 Tightness Penicillins Allergy Rash Verified 06/27/18 17:07 shellfish derived Allergy Airway Verified 06/27/18 17:07 Tightness Home Medications: Home Meds Cholecalciferol (Vitamin D3) [Vitamin D] 5,000 unit PO DAILY 09/27/17 [History] Gabapentin [Neurontin] 100 mg PO TID 09/27/17 [History] Sertraline [Zoloft] 50 mg PO BEDTIME 09/27/17 [History] Simvastatin [Zocor] 20 mg PO BEDTIME 09/27/17 [History] Insulin Detemir [Levemir] 14 units SQ DAILY 11/03/17 [History] Levothyroxine 175 mcg PO ACBREAKFAST 11/03/17 [History] Acetaminophen [Tylenol Arthritis Pain] 1 tab PO Q6HR PRN 12/27/17 [History] Bisacodyl [Dulcolax] 10 tab PO DAILY 02/14/18 [History] Calcium Carbonate [Calci-Chew] 500 mg PO Q6HR PRN 02/14/18 [History] amLODIPine Besylate [Norvasc] 10 mg PO DAILY 02/14/18 [History] Albuterol Sulfate 2.5 mg INH Q4H PRN 06/27/18 [History] Aspirin 81 mg PO DAILY 06/27/18 [History] Budesonide [Pulmicort] 0.5 mg INH BID 06/27/18 [History] Calcium Acetate [PhosLo] 667 mg PO TIDMEALS 06/27/18 [History] Carvedilol 25 mg PO BID 06/27/18 [History] Docusate Sodium [Colace] 100 mg PO DAILY 06/27/18 [History] Famotidine 40 mg PO DAILY 06/27/18 [History] Sodium Chloride [Saline Nasal [place]] 1 spray NS Q2H PRN 06/27/18 [History] Insulin Aspart [NovoLOG] 0 units SQ TIDMEALS #0 06/28/18 [Rx] Past Medical History HEENT History: Reports: None Cardiovascular History: Reports: Hypertension, MD Respiratory History: Reports: SOB (intermittent oxygen use at [facility].) Gastrointestinal History: Reports: None Genitourinary History: Reports: Chronic Renal Insuffiency, Dialysis, Other (See Below) Other Genitourinary History: On HD [employer] WRITER History: Reports: None Musculoskeletal History: Reports: Other (See Below) Other Musculoskeletal History: broken left shoulder Neurological History: Reports: None Psychiatric History: Reports: None Endocrine/Metabolic History: Reports: Diabetes, Type II Hematologic History: Reports: None Immunologic History: Reports: None Oncologic (Cancer) History: Reports: None Dermatologic History: Reports: None - Infectious Disease History Infectious Disease History: Reports: Mumps - Past Surgical History Head Surgeries/Procedures: Reports: None HEENT Surgical History: Reports: None Cardiovascular Surgical History: Reports: Coronary Artery Bypass Respiratory Surgical History: Reports: None GI Surgical History: Reports: Appendectomy, Cholecystectomy Female Surgical History: Reports: None Neurological Surgical History: Reports: None Musculoskeletal Surgical History: Reports: Other (See Below) Oncologic Surgical History: Reports: None Dermatological Surgical History: Reports: None Social & Family History - Family History Family Medical History: Noncontributory - Tobacco Use Smoking Status *Q: Former Smoker Used Tobacco, but Quit: Yes Month/Year Tobacco Last Used: 2002 - Caffeine Use Caffeine Use: Reports: Coffee, Tea - Recreational Drug Use Recreational Drug Use: No H&P Review of Systems - Review of Systems: Review Of Systems: See Below General: Reports: No Symptoms. Denies: Fever, Chills, Malaise, Weakness HEENT: Reports: Sinus Congestion. Denies: Headaches, Sore Throat Pulmonary: Reports: Shortness of Breath, Wheezing, Cough. Denies: Sputum Cardiovascular: Reports: No Symptoms. Denies: Chest Pain, Palpitations, Lightheadedness Gastrointestinal: Reports: No Symptoms. Denies: Abdominal Pain, Black Stool, Bloody Stool, Nausea, Vomiting Genitourinary: Reports: No Symptoms. Denies: Dysuria, Frequency, Burning Musculoskeletal: Reports: No Symptoms Skin: Reports: No Symptoms Psychiatric: Reports: No Symptoms Neurological: Reports: No Symptoms Hematologic/Lymphatic: Reports: No Symptoms Immunologic: Reports: No Symptoms Exam - Exam Exam: See Below - Vital Signs Vital Signs: Last Vital Signs Temp 99.1 F 06/28/18 07:05 Pulse 72 06/28/18 08:12 Resp 20 06/28/18 07:05 BP 182/76 H 06/28/18 08:12 Pulse Ox 92 L 06/28/18 07:05 Weight: 78.471 kg - Exam Quality Assessment: Supplemental Oxygen General: Alert, Oriented, Cooperative HEENT: Conjunctiva Clear, Posterior Pharynx Clear Neck: Supple Lungs: Normal Respiratory Effort, Crackles (fine bibasilar ) Cardiovascular: Regular Rate, Regular Rhythm GI/Abdominal Exam: Normal Bowel Sounds, Soft, Non-Tender Back Exam: Normal Inspection, Full Range of Motion Extremities: Normal Inspection, Normal Range of Motion, Non-Tender, No Pedal Edema Neuro Extensive - Mental Status: Alert, Oriented x3, Normal Mood/Affect Neuro Extensive - Motor, Sensory, Reflexes: CN II-XII Intact Psychiatric: Alert, Normal Affect, Normal Mood - Patient Data Lab Results Last 24 hrs: Laboratory Results - last 24 hr 06/27/18 06/27/18 06/27/18 Range/Units 17:30 17:30 17:30 WBC 4.96 (4.0-11.0) K/uL RBC 3.51 L (4.30-5.90) M/uL Hgb 11.1 L (12.0-16.0) g/dL Hct 32.4 L (36.0-46.0) % MCV 92.3 (80.0-98.0) fL MCH 31.6 (27.0-32.0) pg MCHC 34.3 (31.0-37.0) g/dL RDW Std Deviation 43.4 (28.0-62.0) fl RDW Coeff of Edyta 13 (11.0-15.0) % Plt Count 183 (150-400) K/uL MPV 11.30 (7.40-12.00) fL Neut % (Auto) 76.4 (48.0-80.0) % Lymph % (Auto) 10.7 L (16.0-40.0) % Republic % (Auto) 8.9 (0.0-15.0) % Eos % (Auto) 3.8 (0.0-7.0) % Baso % (Auto) 0.2 (0.0-1.5) % Neut # (Auto) 3.8 (1.4-5.7) K/uL Lymph # (Auto) 0.5 L (0.6-2.4) K/uL Republic # (Auto) 0.4 (0.0-0.8) K/uL Eos # (Auto) 0.2 (0.0-0.7) K/uL Baso # (Auto) 0.0 (0.0-0.1) K/uL Nucleated RBC % 0.0 /100WBC Nucleated RBCs # 0 K/uL INR 1.03 Sodium 135 L (136-145) mmol/L Potassium 3.7 (3.5-5.1) mmol/L Chloride 95 L (98-107) mmol/L Carbon Dioxide 34.6 H (21.0-32.0) mmol/L BUN 13 (7.0-18.0) mg/dL Creatinine 1.8 H (0.6-1.0) mg/dL Est Cr Clr Drug Dosing 23.33 mL/min Estimated GFR (MDRD) 27.9 ml/min Glucose 110 H (74-106) mg/dL POC Glucose (60-110) mg/dL Calcium 8.5 (8.5-10.1) mg/dL Total Bilirubin 0.6 (0.2-1.0) mg/dL AST 19 (15-37) IU/L ALT 10 L (14-63) IU/L Alkaline Phosphatase 114 (46-116) U/L Troponin I 0.088 H* (0.000-0.056) ng/mL B-Natriuretic Peptide (<100) PG/ML Total Protein 7.1 (6.4-8.2) g/dL Albumin 3.3 L (3.4-5.0) g/dL Globulin 3.8 (2.6-4.0) g/dL Albumin/Globulin Ratio 0.9 (0.9-1.6) 06/27/18 06/27/18 06/27/18 Range/Units 17:30 21:52 22:53 WBC (4.0-11.0) K/uL RBC (4.30-5.90) M/uL Hgb (12.0-16.0) g/dL Hct (36.0-46.0) % MCV (80.0-98.0) fL MCH (27.0-32.0) pg MCHC (31.0-37.0) g/dL RDW Std Deviation (28.0-62.0) fl RDW Coeff of Edyta (11.0-15.0) % Plt Count (150-400) K/uL MPV (7.40-12.00) fL Neut % (Auto) (48.0-80.0) % Lymph % (Auto) (16.0-40.0) % Republic % (Auto) (0.0-15.0) % Eos % (Auto) (0.0-7.0) % Baso % (Auto) (0.0-1.5) % Neut # (Auto) (1.4-5.7) K/uL Lymph # (Auto) (0.6-2.4) K/uL Republic # (Auto) (0.0-0.8) K/uL Eos # (Auto) (0.0-0.7) K/uL Baso # (Auto) (0.0-0.1) K/uL Nucleated RBC % /100WBC Nucleated RBCs # K/uL INR Sodium (136-145) mmol/L Potassium (3.5-5.1) mmol/L Chloride (98-107) mmol/L Carbon Dioxide (21.0-32.0) mmol/L BUN (7.0-18.0) mg/dL Creatinine (0.6-1.0) mg/dL Est Cr Clr Drug Dosing mL/min Estimated GFR (MDRD) ml/min Glucose (74-106) mg/dL POC Glucose 99 (60-110) mg/dL Calcium (8.5-10.1) mg/dL Total Bilirubin (0.2-1.0) mg/dL AST (15-37) IU/L ALT (14-63) IU/L Alkaline Phosphatase (46-116) U/L Troponin I 0.079 H* (0.000-0.056) ng/mL B-Natriuretic Peptide 1221 H (<100) PG/ML Total Protein (6.4-8.2) g/dL Albumin (3.4-5.0) g/dL Globulin (2.6-4.0) g/dL Albumin/Globulin Ratio (0.9-1.6) 06/28/18 06/28/18 06/28/18 Range/Units 00:30 02:10 05:45 WBC (4.0-11.0) K/uL RBC (4.30-5.90) M/uL Hgb (12.0-16.0) g/dL Hct (36.0-46.0) % MCV (80.0-98.0) fL MCH (27.0-32.0) pg MCHC (31.0-37.0) g/dL RDW Std Deviation (28.0-62.0) fl RDW Coeff of Edyta (11.0-15.0) % Plt Count (150-400) K/uL MPV (7.40-12.00) fL Neut % (Auto) (48.0-80.0) % Lymph % (Auto) (16.0-40.0) % Republic % (Auto) (0.0-15.0) % Eos % (Auto) (0.0-7.0) % Baso % (Auto) (0.0-1.5) % Neut # (Auto) (1.4-5.7) K/uL Lymph # (Auto) (0.6-2.4) K/uL Republic # (Auto) (0.0-0.8) K/uL Eos # (Auto) (0.0-0.7) K/uL Baso # (Auto) (0.0-0.1) K/uL Nucleated RBC % /100WBC Nucleated RBCs # K/uL INR Sodium (136-145) mmol/L Potassium (3.5-5.1) mmol/L Chloride (98-107) mmol/L Carbon Dioxide (21.0-32.0) mmol/L BUN (7.0-18.0) mg/dL Creatinine (0.6-1.0) mg/dL Est Cr Clr Drug Dosing mL/min Estimated GFR (MDRD) ml/min Glucose (74-106) mg/dL POC Glucose 182 H (60-110) mg/dL Calcium (8.5-10.1) mg/dL Total Bilirubin (0.2-1.0) mg/dL AST (15-37) IU/L ALT (14-63) IU/L Alkaline Phosphatase (46-116) U/L Troponin I 0.084 H* 0.077 H* (0.000-0.056) ng/mL B-Natriuretic Peptide (<100) PG/ML Total Protein (6.4-8.2) g/dL Albumin (3.4-5.0) g/dL Globulin (2.6-4.0) g/dL Albumin/Globulin Ratio (0.9-1.6) 06/28/18 Range/Units 06:07 WBC (4.0-11.0) K/uL RBC (4.30-5.90) M/uL Hgb (12.0-16.0) g/dL Hct (36.0-46.0) % MCV (80.0-98.0) fL MCH (27.0-32.0) pg MCHC (31.0-37.0) g/dL RDW Std Deviation (28.0-62.0) fl RDW Coeff of Edyta (11.0-15.0) % Plt Count (150-400) K/uL MPV (7.40-12.00) fL Neut % (Auto) (48.0-80.0) % Lymph % (Auto) (16.0-40.0) % Republic % (Auto) (0.0-15.0) % Eos % (Auto) (0.0-7.0) % Baso % (Auto) (0.0-1.5) % Neut # (Auto) (1.4-5.7) K/uL Lymph # (Auto) (0.6-2.4) K/uL Republic # (Auto) (0.0-0.8) K/uL Eos # (Auto) (0.0-0.7) K/uL Baso # (Auto) (0.0-0.1) K/uL Nucleated RBC % /100WBC Nucleated RBCs # K/uL INR Sodium (136-145) mmol/L Potassium (3.5-5.1) mmol/L Chloride (98-107) mmol/L Carbon Dioxide (21.0-32.0) mmol/L BUN (7.0-18.0) mg/dL Creatinine (0.6-1.0) mg/dL Est Cr Clr Drug Dosing mL/min Estimated GFR (MDRD) ml/min Glucose (74-106) mg/dL POC Glucose 196 H (60-110) mg/dL Calcium (8.5-10.1) mg/dL Total Bilirubin (0.2-1.0) mg/dL AST (15-37) IU/L ALT (14-63) IU/L Alkaline Phosphatase (46-116) U/L Troponin I (0.000-0.056) ng/mL B-Natriuretic Peptide (<100) PG/ML Total Protein (6.4-8.2) g/dL Albumin (3.4-5.0) g/dL Globulin (2.6-4.0) g/dL Albumin/Globulin Ratio (0.9-1.6) Result Diagrams: 06/27/18 17:30 06/27/18 17:30 Bhargav Results Last 24 hrs: Microbiology 06/27/18 17:47 Influenza Type A Antigen Screen - Final Nasopharyngeal Swab NEGATIVE INFLUENZA A VIRUS AG Influenza Type B Antigen Screen - Final NEGATIVE INFLUENZA B VIRUS AG 06/27/18 17:45 Anaerobic Blood Culture - Final Blood - Venous - Lab Draw - Problem List (1) Hypoxia SNOMED Code(s): 905073516 ICD Code: R09.02 - HYPOXEMIA Status: Acute Current Visit: Yes (2) Elevated troponin SNOMED Code(s): 745956031, 538929474, 231674703 ICD Code: R74.8 - ABNORMAL LEVELS OF OTHER SERUM ENZYMES Status: Acute Current Visit: Yes (3) DM type 2 (diabetes mellitus, type 2) SNOMED Code(s): 01579072 ICD Code: E11.9 - TYPE 2 DIABETES MELLITUS WITHOUT COMPLICATIONS Status: Chronic Current Visit: Yes Qualifiers: Diabetes mellitus marine oil terminal superintendent insulin use: with marine oil terminal superintendent use Diabetes mellitus complication status: with kidney complications Diabetes mellitus complication detail: with chronic kidney disease Chronic kidney disease stage : on chronic dialysis Qualified Code(s): E11.22 - Type 2 diabetes mellitus with diabetic chronic kidney disease; N18.6 - End stage renal disease; Z79.4 - ad terminal makeup operator (current) use of insulin; Z99.2 - Dependence on renal dialysis (4) CHF (congestive heart failure) SNOMED Code(s): 68576522 ICD Code: I50.9 - HEART FAILURE, UNSPECIFIED Status: Chronic Current Visit: No Qualifiers: Heart failure type: unspecified Heart failure chronicity: acute Qualified Code(s): I50.9 - Heart failure, unspecified (5) Oxygen dependent SNOMED Code(s): 924689909304 ICD Code: Z99.81 - DEPENDENCE ON SUPPLEMENTAL OXYGEN Status: Chronic Current Visit: Yes (6) Chronic renal failure, stage 4 (severe) SNOMED Code(s): 55885277, 323732733 ICD Code: N18.4 - CHRONIC KIDNEY DISEASE, STAGE 4 (SEVERE) Status: Chronic Current Visit: No (7) HTN (hypertension) SNOMED Code(s): 48949381 ICD Code: I10 - ESSENTIAL (PRIMARY) HYPERTENSION Status: Chronic Current Visit: No Qualifiers: Hypertension type: secondary to other renal disorders Qualified Code(s): I15.1 - Hypertension secondary to other renal disorders; N28.89 - Other specified disorders of kidney and ureter Problem List Initiated/Reviewed/Updated: Yes Orders Last 24hrs: Active Orders 24 hr Category Date Time Status Admission Status [Patient Status] [ADT] Stat ADT 06/27/18 19:53 Active Accu Check [Blood Glucose Check, Bedside] [RC] Care 06/27/18 22:48 Active WITHMEALSANDBED EKG Documentation Completion [RC] STAT Care 06/27/18 17:15 Active RT Aerosol Therapy [RC] ASDIRECTED Care 06/27/18 17:15 Active RT Aerosol Therapy [RC] ASDIRECTED Care 06/27/18 22:45 Active Telemetry Monitoring [Cardiac Monitoring] [RC] Q8H Care 06/27/18 20:32 Active Up With Assistance [RC] ASDIRECTED Care 06/27/18 21:53 Active ADA Diabetic [[place] [employer] Diet] [DIET Diet 06/28/18 Breakfast Active ] Renal Dialysis Diet [DIET] Diet 06/28/18 Breakfast Active Chest 1V Frontal [CR] Stat Exams 06/27/18 17:15 Taken CULTURE BLOOD [BC] Stat Lab 06/27/18 17:30 Received CULTURE BLOOD [BC] Stat Lab 06/27/18 17:45 Results Acetaminophen [Tylenol Extra Strength] Med 06/27/18 22:46 Active 500 mg PO Q6H PRN Albuterol/Ipratropium [DuoNeb 3.0-0.5 MG/3 ML] Med 06/27/18 22:47 Active 3 ml NEB Q6HRRT PRN Aspirin Med 06/28/18 09:00 Active 81 mg PO DAILY Budesonide [Pulmicort] Med 06/28/18 06:00 Active 0.5 mg NEB BIDRT Carvedilol [Coreg] Med 06/27/18 23:00 Active 25 mg PO BID Cholecalciferol (Vitamin D3) [Vitamin D3] Med 06/28/18 09:00 Active 5,000 units PO DAILY Gabapentin [Neurontin] Med 06/27/18 23:00 Active 100 mg PO TID Insulin Aspart [NovoLOG] Med 06/28/18 07:30 Active See Protocol SUBCUT ACBED Insulin Detemir [Levemir] Med 06/28/18 17:00 Active 5 unit SUBCUT BIDAC Levothyroxine Med 06/28/18 07:30 Active 150 mcg PO ACBREAKFAST Levothyroxine Med 06/28/18 07:30 Active 25 mcg PO ACBREAKFAST Patient's Own Medication [Ptom] Med 06/28/18 08:00 Active 1 each PO TIDMEALS Sertraline [Zoloft] Med 06/27/18 22:45 Active 50 mg PO DAILY Simvastatin [Zocor] Med 06/27/18 23:00 Active 20 mg PO BEDTIME amLODIPine [Norvasc] Med 06/28/18 09:00 Active 10 mg PO DAILY cloNIDine [Catapres] Med 06/27/18 22:49 Active 0.1 mg PO Q8H PRN Blood Culture x2 Reflex Set [OM.PC] Stat Oth 06/27/18 17:15 Ordered Medication Orders Acetaminophen (Tylenol Extra Strength) 500 mg PO Q6H PRN PRN Reason: Pain Albuterol/Ipratropium (Duoneb 3.0-0.5 Mg/3 Ml) 3 ml NEB Q6HRRT PRN PRN Reason: Shortness of Breath Amlodipine Besylate (Norvasc) 10 mg PO DAILY [facility] Last Admin: 06/28/18 08:08 Dose: 10 mg Aspirin (Aspirin) 81 mg PO DAILY [facility] Last Admin: 06/28/18 08:07 Dose: 81 mg Budesonide (Pulmicort) 0.5 mg NEB BIDRT [facility] Last Admin: 06/28/18 05:55 Dose: 0.5 mg Carvedilol (Coreg) 25 mg PO BID [facility] Last Admin: 06/28/18 08:12 Dose: 25 mg Admin: 06/27/18 23:52 Dose: 25 mg Cholecalciferol (Vitamin D3) 5,000 units PO DAILY [facility] Last Admin: 06/28/18 08:06 Dose: 5,000 units Clonidine HCl (Catapres) 0.1 mg PO Q8H PRN PRN Reason: SBP >180 Gabapentin (Neurontin) 100 mg PO TID [facility] Last Admin: 06/28/18 06:05 Dose: 100 mg Admin: 06/27/18 23:52 Dose: 100 mg Insulin Aspart (Novolog) 0 unit SUBCUT ACBED [facility]; Protocol Insulin Detemir (Levemir) 5 unit SUBCUT BIDAC [facility] Levothyroxine Sodium (Levothyroxine) 150 mcg PO ACBREAKFAST [facility] Last Admin: 06/28/18 06:36 Dose: Admin: 06/28/18 06:05 Dose: 150 mcg Levothyroxine Sodium (Levothyroxine) 25 mcg PO ACBREAKFAST [facility] Last Admin: 06/28/18 06:36 Dose: Admin: 06/28/18 06:04 Dose: 25 mcg Calcium Acetate 667 (Mg Cap) 1 each PO TIDMEALS [facility] Sertraline HCl (Zoloft) 50 mg PO DAILY [facility] Last Admin: 06/28/18 08:07 Dose: 50 mg Admin: 06/27/18 23:52 Dose: 50 mg Simvastatin (Zocor) 20 mg PO BEDTIME [facility] Last Admin: 06/27/18 23:52 Dose: 20 mg Assessment/Plan Comment:: This 68 year old female with pmh of ESRD on dialysis and CHF admitted due to elevated troponin and hypoxia. Maritza was admitted and monitored overnight. She was monitored on telemetry with no acute ST changes, no chest pain. Troponins remains just barely elevated, which is most likely secondary to ESRD. She reports feeling well this morning. Reports a mild cough, but otherwise is feeling at her baseline. She reports she is on oxygen at [place] intermittently and places it when she is short of breath. She reports currently she is no longer short of breath. Discharge Plan: Maritza will be discharged home today back to [place]. No medication changes, continue oxygen supplementation as previously ordered. Continue Dialysis as previously ordered on [facility]. She is to return to ED or clinic if concerns should arise.
[2018-06-28] MEDS: Calcium Acetate 667 MG Cap PO SCH ×2 (08:31→11:56)
[2018-06-28] MEDS ORDERED: Aspirin 81 MG Tab.Chew PO SCH (09:00)
[2018-06-28] MEDS ORDERED: Cholecalciferol (Vitamin D3) 1,000 Unit Tab PO SCH (09:00)
[2018-06-28] MEDS ORDERED: amLODIPine 5 MG Tab PO SCH (09:00)
[2018-06-28 10:49] VITALS: BP 137/61
--- NOTE | 2018-06-28 14:16 | CR ---
EXAM DATE: 06/27/18 PATIENT'S AGE: 68 Patient: YAZMIN LIMA Facility: [facility] Site . Site : [id number] Study: XRay-Chest [id number]/27/2019 6:39:36 PM Ordering Physician: She Luther Final Report: INDICATION: SOB COMPARISON: 12/27/2017. FINDINGS: Single portable AP view of the chest demonstrates postsurgical change from median sternotomy, unchanged from prior. There has been interval removal of previously seen right internal jugular dialysis catheter. There is mild diffuse vascular congestion. There are few linear opacities at the right lung base, most likely scarring or atelectasis. No pneumothorax. Heart size is enlarged, likely due at least in part to AP technique. Extensive surgical changes of the spine. No acute osseous findings. IMPRESSION: Mild diffuse vascular congestion. No focal airspace disease. Dictated by Ramy Bella MD @ 06/27/2018 7:15:52 PM Dictated by: Ramy Bella MD @ 06/27/2018 19:15:58 Signed by: Ramy Bella MD @06/27/2018 7:15:58 PM (Electronic Signature) Report Signed by Proxy. KEENAN
== END 2018-06-28 12:25 ==
LOC: MW.ED 16:54 → MW.MS 19:53
PROVIDERS: ADMIT Internal Medicine; ATTEND Internal Medicine
DX: R09.02 Hypoxemia (principal); R74.8 Abnormal levels of other serum enzymes; I13.2 Hypertensive heart and chronic kidney disease with heart failure and with stage 5 chronic kidney disease, or end stage renal disease; E11.22 Type 2 diabetes mellitus with diabetic chronic kidney disease; N18.6 End stage renal disease; I50.9 Heart failure, unspecified; I25.2 Old myocardial infarction; Z99.2 Dependence on renal dialysis; Z99.81 Dependence on supplemental oxygen; Z87.891 Personal history of nicotine dependence; Z79.4 Long term (current) use of insulin; Z79.82 Long term (current) use of aspirin; Z79.899 Other long term (current) drug therapy; Z88.1 Allergy status to other antibiotic agents; Z91.048 Other nonmedicinal substance allergy status; Z91.013 Allergy to seafood
CPT/HCPCS: 36415; 71045; 80053; 82962; 83880; 84484; 85025; 85610; 87040; 87804; 93005; 94640; 96361; 96374; 96375; 99285; A9270; G0378; J1815; J1940; J2930; J7040; J7620-GY